=== PATIENT | female | born 1975 | race Caucasian/White ===

== ENCOUNTER 2025-02-02 13:54 | Emergency (ER) | payer OTHER, SELFPAY ==
--- NOTE | 2025-02-02 14:05 | XR_ITS ---
PROCEDURE INFORMATION: Exam: XR Chest Exam date and time: 02/02/2025 2:25 PM Age: 49 years old Clinical indication: Shortness of breath; Additional info: Short of breath TECHNIQUE: Imaging protocol: Radiologic exam of the chest. Views: 1 view. COMPARISON: CT ABDOMEN PELVIS W CON 02/02/2025 2:22 PM FINDINGS: Lungs: Calcified left upper lobe granuloma. No consolidation. Pleural spaces: Unremarkable. No pleural effusion. No pneumothorax. Heart/Mediastinum: Unremarkable. No cardiomegaly. Bones/joints: Unremarkable. IMPRESSION: No acute findings.
--- NOTE | 2025-02-02 14:05 | CT_ITS ---
PROCEDURE INFORMATION: Exam: CT Abdomen And Pelvis With Contrast Exam date and time: 02/02/2025 2:22 PM Age: 49 years old Clinical indication: Abdominal pain; Additional info: Right flank pain TECHNIQUE: Imaging protocol: Computed tomography of the abdomen and pelvis with contrast. Radiation optimization: All CT scans at this facility use at least one of these dose optimization techniques: automated exposure control; mA and/or kV adjustment per patient size (includes targeted exams where dose is matched to clinical indication); or iterative reconstruction. Contrast material: ISOVUE; Contrast volume: 75 ml; Contrast route: IV; COMPARISON: No relevant prior studies available. FINDINGS: Liver: Normal. No mass. Gallbladder and biliary ducts: Normal. No calcified stones. No ductal dilation. Pancreas: Normal. No ductal dilation. Spleen: Normal. No splenomegaly. Adrenal glands: Normal. No mass. Kidneys and ureters: Normal. No hydronephrosis. Stomach and bowel: Sigmoid colon surgical anastomosis. There appears to be a near total colectomy. Appendix: No evidence of appendicitis. Intraperitoneal space: Unremarkable. No free air. No significant fluid collection. Vasculature: Atherosclerosis. Lymph nodes: Unremarkable. No enlarged lymph nodes. Urinary bladder: Unremarkable as visualized. Reproductive: 3.1 x 3.5 x 3.6 cm simple appearing left ovarian/adnexal cyst. Punctate right ovarian calcification. Uterus unremarkable. Bones/joints: Unremarkable. No acute fracture. Soft tissues: Partially imaged breast implants. IMPRESSION: 1. 3.1 x 3.5 x 3.6 cm simple appearing left ovarian/adnexal cyst. 2. Atherosclerosis. 3. Sigmoid colon surgical anastomosis. There appears to be a near total colectomy. 4. Additional chronic/nonemergent findings as detailed above.
[2025-02-02 14:07] VITALS: BP 170/95; PULSE 89; RESP 16; TEMP 37.1; O2SAT 99; BMI 28.0
--- NOTE | 2025-02-02 14:11 | HMH.EDGENADL ---
Discharge Plan Disposition Patient Disposition: Left Against Medical Advice Referrals Follow up/Referrals: Provider,Referral, MD [Primary Care Provider, Medical] - See instructions Clinical Impressions Clinical Impression: Abdominal pain, Vomiting, Left against medical advice Instructions Patient Instructions: DI for Acute Abdominal Pain Print Language Print Language: Jamaican Discharge ED Provider: Ravinder Becerril General Adult HPI <Emani Stewart (ED), SALES CONTRACTOR - Last Filed: 02/02/25 15:26> General Chief complaint: Abdominal Pain Stated complaint: Abd. Pain and vomiting Time Seen by Provider: 02/02/25 13:57 Mode of Arrival: Ambulatory Source of Information: Patient Description of Symptoms (Recalled from ER Triage Doc. by RN): Patient complaining of left lower abdominal pain that started yesterday. Also nausea and vomiting History of Present Illness HPI narrative: 49-year-old female presents to the ED today for left lower abdominal pain that started yesterday. She has been vomiting and her meds at home have not stopped it. She has history of a total colectomy in 2022. She has also PCOS. She says it is difficult to tell which is hurting her. She has had an ileus in the past, SBO and kidney stones. She says she has no dysuria. No fevers. He says the vomiting has gotten worse since last night. Related Data Allergies Allergy/AdvReac Type Severity Reaction Status Date / Time amoxicillin Allergy Rash Verified 02/02/25 14:12 latex Allergy Rash Verified 02/02/25 14:12 morphine Allergy Hives Verified 02/02/25 14:12 PFSH <Emani Stewart (ED), SALES CONTRACTOR - Last Filed: 02/02/25 15:26> [facility] Disclaimer: The information contained in this section may have been updated after the patient was seen, as this information can be updated by other users. Social History (Updated 02/02/25 @ 15:25 by Emani Stewart (ED), SALES CONTRACTOR) Smoking Status: Former smoker alcohol intake: never current occupational status: other Travel in the last 8 weeks?: None Have you lived/traveled outside US in past 30 days?: No Contact w/someone who lives/traveled outside US past 30 days?: No Exposure to someone with infectious disease in past 14 days?: No Do you have a fever (greater than 100.4 F or 38 C)?: No Have you tested positive for COVID-19?: No Exposed to someone with COVID-19 in past 14 days?: No Do you have a sore throat?: No Do you have a cough?: No Do you have any weakness?: No Do you have any diarrhea?: No Are you experiencing any unusual bleeding?: No Do you have any muscle aches/pain?: No Do you have any abdominal pain?: Yes Are you experiencing loss of taste or smell?: No <Emani Stewart (ED), SALES CONTRACTOR - Last Filed: 02/02/25 15:26> ROS Obtained: Yes Systems reviewed as appropriate & no additional complaints except as documented Constitutional Constitutional: Reports as per HPI Physical Exam <Emani Stewart (ED), SALES CONTRACTOR - Last Filed: 02/02/25 15:26> General General appearance: alert Head Head exam: atraumatic and normocephalic Eye Eye exam: Present PERRL and EOMI ENT ENT exam: Present normal oropharynx and mucous membranes moist Neck Neck exam: Present full ROM and trachea midline Respiratory Respiratory exam: Present normal lung sounds bilaterally Cardiovascular Cardiovascular exam: Present regular rate, normal rhythm, normal heart sounds, +S1 and +S2 Abdominal Exam Abdominal exam: Present soft and normal bowel sounds Abdominal tenderness: Present LLQ Extremities Exam Extremities exam: Present full ROM and normal capillary refill Neurological Exam Neurological exam: Present alert and oriented X3 Skin Skin exam: Present warm and dry Medical Decision Making <Emani Stewart (ED), SALES CONTRACTOR - Last Filed: 02/02/25 15:26> Medical Records Screening: Per USPSTF and CDC recommendations, given the prevalence of disease in our region, it is our hospital?s policy to screen for HIV and viral Hepatitis for all patients aged 18 and over and those with ongoing risk factors. Jean Claude Inquiry Pt receiving controlled substance: No Jean Claude was queried for this patient: No Vital Signs: 02/02/25 14:07 02/02/25 15:26 Temperature 98.8 F 98.6 F Temperature Source Oral Oral Pulse Rate 87 Pulse Rate [Right Brachial] 89 Respiratory Rate 16 16 Blood Pressure 136/78 Blood Pressure [Right Arm] 170/95 H Blood Pressure Mean [Right Arm] 120 Blood Pressure Source Automatic Cuff Blood Pressure Source [Right Arm] Automatic Cuff Blood Pressure Position Sitting Blood Pressure Position [Right Arm] Sitting 02 Sat by Pulse Oximetry 99 Oxygen Delivery Method Room Air Room Air Lab Data Lab Results 02/02/25 15:07: WBC 11.6 H, RBC 4.64, Hgb 13.7, Hct 40.8, MCV 87.9, MCH 29.5, MCHC 33.6, RDW 13.1, Plt Count 353, MPV 9.4, Neut % (Auto) 76.7, Lymph % (Auto) 16.4, Brooke % (Auto) 5.0, Eos % (Auto) 0.5, Baso % (Auto) 0.5, Neut # (Auto) 8.9 H, Lymph # (Auto) 1.9, Brooke # (Auto) 0.6, Eos # (Auto) 0.1, Baso # (Auto) 0.1, Sodium 133 L, Potassium 4.1, Chloride 102, Carbon Dioxide 26, Anion Gap 9.1, BUN 18 H, Creatinine 0.60, Estimated Creat Clear 143, Estimated GFR 107, Est GFR ( Amer) 129, Glucose 98, Calcium 9.2, Magnesium 2.1, Total Bilirubin 0.2, AST 22, ALT 27, Alkaline Phosphatase 74, Troponin I < 0.01, Total Protein 7.0, Albumin 4.1, Globulin 2.9, Albumin/Globulin Ratio 1.4, Lipase 64 02/02/25 15:07 02/02/25 15:07 Orders (Tests/Meds): ED MEDICATIONS Discontinued Medications Generic Name Dose Route Start Last Admin Trade Name Freq PRN Reason Stop Dose Admin Dicyclomine HCl 20 mg 02/02/25 14:04 Dicyclomine 10mg Capsule PO 02/02/25 14:05 ONCE ONE Sodium Chloride 1,000 mls @ 999 mls/hr 02/02/25 14:04 02/02/25 14:48 Sod Chlor 0.9% 1000ml Bag IV 02/02/25 15:04 999 mls/hr .Q1H1M ONE Administration Iopamidol 75 ml 02/02/25 14:29 02/02/25 14:29 Iopamidol-370 (76%);100ml Bottle IV 02/02/25 14:30 75 ml ONCE ONE Administration Ketorolac Tromethamine 30 mg 02/02/25 14:04 02/02/25 14:50 Ketorolac 30mg/Ml Vial IV 02/02/25 14:05 30 mg ONCE ONE Administration Prochlorperazine Edisylate 5 mg 02/02/25 14:04 02/02/25 14:49 Prochlorperazine 10mg/2ml Vial IV 02/02/25 14:05 5 mg ONCE ONE Administration Sodium Chloride 10 ml 02/02/25 14:29 02/02/25 14:30 Sodium Chloride 0.9% 10ml Syr (Rad Only) IV 03/04/25 14:28 10 ml NEEDED PRN Administration Maintain IV Site ORDERS Category Date Time Status CT abdomen pelvis w con Stat Cat Scan 02/02/25 14:05 Completed Chest XR -- portable [XR chest portable] Stat Exams 02/02/25 14:05 Completed CBC [Complete Blood Count Auto Diff] Stat Lab 02/02/25 15:07 Completed Comprehensive Metabolic Panel Stat Lab 02/02/25 15:07 Completed Lipase Stat Lab 02/02/25 15:07 Completed Magnesium Stat Lab 02/02/25 15:07 Completed Rapid PCR Covid and Flu A/B Stat Lab 02/02/25 15:07 Received Trop I [Troponin I] Stat Lab 02/02/25 15:07 Completed Medical Decision Narrative: patient is a 49-year-old female presenting to the emergency department for evaluation of left lower quadrant abdominal pain and vomiting. Patient is hemodynamically stable and nontoxic-appearing upon arrival, afebrile. Differential diagnosis includes small bowel obstruction, ileus, viral illness, among others. Workup will be conducted with hematologic labs, specific imaging. Initial inventions include crystalloid bolus, analgesics. Initial labs have not returned at this time. CT scan and chest x-ray have been completed and initially Dr. Fournier looked at scan and as did I do not see anything dangerous as patient wants to leave AMA because someone around her had the flu here in the ED. I explained to her that I cannot control that people in the emergency department have seen flu. She says that she cannot get the flu and wants to be discharged. I told her that without having results I cannot discharge her but she can sign out AMA. Patient wants to leave without results. I discussed this with her and she still wants to leave despite the risks. Patient's vomiting has stopped and she states that she does feel improved. <Ravinder Becerril MD - Last Filed: 02/02/25 15:47> Vital Signs: 02/02/25 14:07 02/02/25 15:26 Temperature 98.8 F 98.6 F Temperature Source Oral Oral Pulse Rate 87 Pulse Rate [Right Brachial] 89 Respiratory Rate 16 16 Blood Pressure 136/78 Blood Pressure [Right Arm] 170/95 H Blood Pressure Mean [Right Arm] 120 Blood Pressure Source Automatic Cuff Blood Pressure Source [Right Arm] Automatic Cuff Blood Pressure Position Sitting Blood Pressure Position [Right Arm] Sitting 02 Sat by Pulse Oximetry 99 Oxygen Delivery Method Room Air Room Air Lab Data Lab Results 02/02/25 15:07: WBC 11.6 H, RBC 4.64, Hgb 13.7, Hct 40.8, MCV 87.9, MCH 29.5, MCHC 33.6, RDW 13.1, Plt Count 353, MPV 9.4, Neut % (Auto) 76.7, Lymph % (Auto) 16.4, Brooke % (Auto) 5.0, Eos % (Auto) 0.5, Baso % (Auto) 0.5, Neut # (Auto) 8.9 H, Lymph # (Auto) 1.9, Brooke # (Auto) 0.6, Eos # (Auto) 0.1, Baso # (Auto) 0.1, Sodium 133 L, Potassium 4.1, Chloride 102, Carbon Dioxide 26, Anion Gap 9.1, BUN 18 H, Creatinine 0.60, Estimated Creat Clear 143, Estimated GFR 107, Est GFR ( Amer) 129, Glucose 98, Calcium 9.2, Magnesium 2.1, Total Bilirubin 0.2, AST 22, ALT 27, Alkaline Phosphatase 74, Troponin I < 0.01, Total Protein 7.0, Albumin 4.1, Globulin 2.9, Albumin/Globulin Ratio 1.4, Lipase 64 Orders (Tests/Meds): ED MEDICATIONS Discontinued Medications Generic Name Dose Route Start Last Admin Trade Name Freq PRN Reason Stop Dose Admin Dicyclomine HCl 20 mg 02/02/25 14:04 Dicyclomine 10mg Capsule PO 02/02/25 14:05 ONCE ONE Sodium Chloride 1,000 mls @ 999 mls/hr 02/02/25 14:04 02/02/25 14:48 Sod Chlor 0.9% 1000ml Bag IV 02/02/25 15:04 999 mls/hr .Q1H1M ONE Administration Iopamidol 75 ml 02/02/25 14:29 02/02/25 14:29 Iopamidol-370 (76%);100ml Bottle IV 02/02/25 14:30 75 ml ONCE ONE Administration Ketorolac Tromethamine 30 mg 02/02/25 14:04 02/02/25 14:50 Ketorolac 30mg/Ml Vial IV 02/02/25 14:05 30 mg ONCE ONE Administration Prochlorperazine Edisylate 5 mg 02/02/25 14:04 02/02/25 14:49 Prochlorperazine 10mg/2ml Vial IV 02/02/25 14:05 5 mg ONCE ONE Administration Sodium Chloride 10 ml 02/02/25 14:29 02/02/25 14:30 Sodium Chloride 0.9% 10ml Syr (Rad Only) IV 03/04/25 14:28 10 ml NEEDED PRN Administration Maintain IV Site ORDERS Category Date Time Status CT abdomen pelvis w con Stat Cat Scan 02/02/25 14:05 Completed Chest XR -- portable [XR chest portable] Stat Exams 02/02/25 14:05 Completed CBC [Complete Blood Count Auto Diff] Stat Lab 02/02/25 15:07 Completed Comprehensive Metabolic Panel Stat Lab 02/02/25 15:07 Completed Lipase Stat Lab 02/02/25 15:07 Completed Magnesium Stat Lab 02/02/25 15:07 Completed Rapid PCR Covid and Flu A/B Stat Lab 02/02/25 15:07 Received Trop I [Troponin I] Stat Lab 02/02/25 15:07 Completed ECG Data Tracing #1: Independently interpreted by me rate is 97, rhythm is regular, axis is normal, no ST elevation in anatomical contiguous leads, QTc 346 isolated PVC. Critical Care <Emani Stewart (ED), SALES CONTRACTOR - Last Filed: 02/02/25 15:26> Critical Care Time Critical Care Time: No
--- OUTSIDE RECORDS SUMMARY | 2025-02-02 14:15 | XMS_ITS | Continuity of Care Document ---
Author Organization [facility]. If a dditional information is needed, contact Health Information Management at [phone] [address] [place] [address] Phone Care Team Providers Care Senior Business Process Analyst Name Role Phone Unavailable Unavailable Unavailable Unavailable Unavailable Unavailable Unavailable Unavailable Unavailable Problems Abdominal pain Onset:24-Nov-2022 Venita FORD Allergies and Adverse Reactions morphine(Allergy) Onset: 24-Nov-2022 Reaction:ITCHING Amoxicillin(Allergy) Onset: 24-Nov-2022 Reaction:RASH metoclopramide(Allergy) Onset: 24-Nov-2022 Reaction:SPASTICITY Social History Smoking Status Never smoked tobacco Recorded: 24-Nov-2022
--- OUTSIDE RECORDS SUMMARY | 2025-02-02 14:16 | XMS_ITS | Clinical Summary ---
[facility] Address [address] [place] [address] Care Team Providers Care Floor Cleaner Name Role Phone Mora Prather MD Primary Care Provider [phone] Allergies Active Allergy Reactions Criticality Noted Date Comments Amoxicillin-Pot Clavulanate GI Intolerance 06/09 Medications azithromycin (ZITHROMAX Z-KAITLIN) 250 MG tablet Take 2 tablets the first day, then 1 tablet daily for 4 days. 6 tablet 07/06/2016 Active Immunizations Immunization Administration Dates Next Due PPD Test 10/18/2015 Social History Tobacco Use Types Packs/Day Years Used Date Smoking Tobacco: Never Assessed Abuse Screen Answer Date Recorded Unsafe at Home or Work/School Not on file Feels Threatened by Someone? Not on file 11/2022 Does Anyone Keep You from Co ntacting Others or Doint Things Outside the Home? Not on file 11/16/2022 Physical Sign of Abuse Present Not on file 1 Housing Stability Answer Date Recorded Current Living Arrangements Not on file 11/07 Potentially Unsafe Housing Conditions Not on dat e 11/16/2022 Family and Community Support Answer Jackson e Recorded Help with Day-to-Day Activities Not on file 11/16/2022 Lonely or Isolated Not on file 11/16/2022 Employment Answer Date Recorded Do you want help finding or keeping work or a michelle b? Not on file 11/16/2022 Disabilities Answer Date Recorded Concentrating, Remembering, or Making Decisions Difficulty Not on file 11/16/2022 Doing Errands Independently Difficulty Not on fi le 11/16/2022 Education Answer Date Recorded Help with school or training? Not on file Preferred Language Not on file 11/16/2022 Comments Unknown Sex and Gender Information Value Date Recorded Sex Assigned at Not on file Legal Sex Female 10:25 AM EDT Gender Identity Not on file Sexual Orientation Not on file Last Filed Vital Signs Vital Sign Reading Time Taken Comments Blood Pressure - - Pulse 80 07/06/2016 10:19 AM EDT Temperature 37.3 C (99.1 F) 07/06/2016 10:19 AM EDT Respiratory Rate 17 07/06/2016 10:19 AM EDT Oxygen Saturation 99% 07/06/2016 10:19 AM EDT Inhaled Oxygen Concentration - - Weight 79.8 kg (176 lb) 07/06/2016 10:19 AM EDT Height 167.6 cm (5' 6 ) 07/06/2016 10:19 AM EDT Body Mass Index 28.41 07/06/2016 10:19 AM EDT Plan of Treatment Health Maintenance Due Date Last Done Comments Annual Gynecologic Pelvic an d Breast Exam 1976 TDAP/TD VACCINES (1 - Tdap) 04/09/1995 MAMMOGRAM 2016 ANNUAL PHYSICAL 07/06/2016 HEPATITIS C SCREENING 07/06/2016 COLOGUARD 2021 COLON CANCER SCREENING 5 YEA R SIGMOIDOSCOPY 2021 COLONOSCOPY 2021 COL[address]ECTAL CANCER SCREENING 2021 CT COLONOGRAPHY 2021 FECAL OCCULT BLOOD TEST 2021 FIT Testing (1 year) 2021 INFLUENZA VACCINE 09/07/2024 Pneumococcal Vaccine 0-49 Aged Out No longer eligible based on patient's age to complete this topic Care Teams Floor Cleaner Relationship Specialty Start Date End Date Mora Prather MD [address] [place], [place] [id number] PCP - General Internal Medicine 10/18/15
--- OUTSIDE RECORDS SUMMARY | 2025-02-02 14:16 | XMS_ITS | Continuity of Care Document ---
Author Organization [place], [facility] [place] [address] Care Team Providers Care Adjustment Supervisor Name Role Phone DINORA ROQUE Primary Care Provider DINORA ROQUE Referring Provider EDVIN PERRY Primary Care Provider DINORA ROQUE Primary Care Provider Assessment No assessment recorded. Plan of Treatment Reminders Order Date Submit Date Provider Last Modified By Organization Details Last Modified Time Details Appointments None recorded. Lab None recorded. Referral None recorded. Procedures None recorded. Surgeries None recorded. Imaging None recorded. Medication Orders Kenalog 40 mg/mL suspension for injection 2024 025 [email or web address] Not available 5 09:46:45 Patient TargetsNo targets recorded. Patient InstructionsNo instructions recorded. Reason for Referral None Reported. Results Created Date Observation Date Name Description Value Unit Range Abnormal Flag Note LastModifiedBy Organization Detail LastModifiedTime 12/26/1912/24/2024 XR, shoul lucrecia TECHNI QUE: Left should er radiog raphs, 3 views. HISTOR Y: Should er pain. COMPAR VALERIA: None availa ble. FINDIN GS: BONES: Bone minera lizati on is normal . The osseou s struct ures are intact , withou t acute or healin g fractu re or destru ctive abnorm ality. JOINTS : Joint relati onship s are mainta ined. No signif icant degene rative change s. SOFT TISSUE S: No apprec iable soft tissue abnorm ality. OTHER: The visual ized left lung is clear. IMPRES EVELYNE: Unrema rkable left should er. Jeevan wilkinson MD 2024 3:35 PM (US/Luis Angel [email or web address]) Electr onical ly Signed By: Jeevan Triana Sign Date: [email or web address] [facility] All Locations, [place], [address], 12/27/2024 07:36:14 Result Notes None recorded. Problems Name Problem SNOMED Code Status Onset Date Resolution Date Notes Provider Name and Address Organization Details Recorded Time Polyneuropa thy associated with another disorder 037475761 [facility] 6 14:08:24 Hypoglycemi a 593327530 Active 2011 Roula Mark Anthony [facility] 6 14:08:24 Malaise and fatigue 630931518 Active 2011 Roula Hopson [facility] 6 14:08:24 Polycystic ovary syndrome 939446451 Active 2019 Dinora Roque DO [address], [place], [address], [facility], [facility] 0 14:49:03 Abnormal weight 07081497 Active 2019 Dinora Roque DO [address], [place], [address], [facility], [facility] 0 14:49:57 Slow transit constipatio n 63939697 Active 2021 Harmony Khanna [facility], [facility] 2 13:05:45 Calcified granuloma of lung 7860200938934 9100 Active 2022 Palmira LASSITER DIRECTOR NICU [address], [place], [address], [facility], [facility] 3 16:11:01 Chronic insomnia 635569221 Active 2022 Palmira LASSITER DIRECTOR NICU [address], [place], [address], [facility] Physician [facility], [facility] 3 16:11:22 Hyperlipide malgorzata 47545984 Active 2022 Palmira LASSITER DIRECTOR NICU [address], [place], [address], [facility] Physician [facility], [facility] 3 16:12:39 Polyp of vaginal wall 015967867 Active 2022 Palmira LASSITER DIRECTOR NICU [address], [place], [address], [facility] Physician [facility], [facility] 3 16:29:08 Flushing of face due to rosacea 866724455 Active 2023 Palmira LASSITER DIRECTOR NICU [address], [place], [address], [facility] Physician [facility], [facility] 4 13:09:11 Acute sinusitis 74411833 Active 2023 Palmira LASSITER DIRECTOR NICU [address], [place], [address], [facility] Physician [facility], [facility] 4 13:10:26 Rosacea 016859812 Active 2023 Palmira LASSITER DIRECTOR NICU [address], [place], [address], [facility] Physician [facility], [facility] 4 13:12:08 Chronic diarrhea 470001068 Active 2023 Cheryl Galeas DIRECTOR NICU [address], [place], [address], [facility] Physician [facility], [facility] 4 22:47:51 Ovarian pain 583705236 Active 2023 Cheryl Galeas DIRECTOR NICU [address], [place], [address], [facility], [facility] 4 22:47:52 Family history of malignant neoplasm of ovary 561438502 Active 2023 Cheryl Galeas APRN [address], [place], [address], [facility], [facility] 4 22:47:55 Vitamin D deficiency 96577826 Active 2023 Cheryl Galeas APRN [address], [place], [address], [facility], [facility] 4 22:49:01 Insomnia 524402589 Active 2023 Cheryl Galeas APRN [address], [place], [address], [facility], [facility] 4 22:49:17 Post-surgic al malabsorpti on 019966352 Active 2023 LOGAN DEL ANGEL [address], [place], [address], [facility], [facility] 4 12:28:26 Problem Notes None recorded. Procedures Surgical History Date Name Laterality Status Provider Name and Address Organization Details Recorded Time 01/01/20 25 Aspiration Major Joint/Bursa completed LOGAN DEL ANGEL [address], [place], [address], [facility], [facility] 12/31/2024 11:31:29 04/28/19 25 mammography completed Nissa [facility] 12/21/2024 08:21:35 08/18/19 23 excision of colon completed Cheryl Galeas APRN [address], [place], [address], [facility], [facility] 09/05/2023 15:46:16 04/01/19 22 Skin: Destruction of Benign/Premalig nant lesions completed Dinora Roque DO [address], [place], [address], [facility], [facility] 04/01/2021 13:39:00 12/03/19 21 EGD-Upper Endoscopy completed Harmony Khanna [facility], [facility] 12/02/2020 20:27:18 11/19/19 21 Colonoscopy completed Harmony Khanna [facility], [facility] 11/18/2020 12:49:35 02/25/19 21 Quality Medication Reviewed and Updated completed [facility] Physician [facility], [facility] 02/26/2020 10:39:25 02/25/19 21 Quality (DM or HTN) BP Diastolic < 80 [facility], [facility] 02/26/2020 10:39:30 02/25/19 21 Quality Tobacco Non- User completed [facility], [facility] 02/26/2020 10:39:23 02/25/19 21 Quality (DM or HTN ) BP Systolic < 130 [facility], [facility] 02/26/2020 10:39:28 02/25/19 21 Quality BMI with follow up completed [facility], [facility] 02/26/2020 10:39:26 02/17/19 21 Mammogram Screening completed Bobbi Lynne [facility], [facility] 02/19/2020 19:02:51 10/29/19 20 Quality Medication Reviewed and Updated completed [facility], [facility] 10/29/2019 14:04:55 10/29/19 20 Quality (DM or HTN) BP Diastolic < 80 completed [facility] Physician [facility], [facility] 10/29/2019 14:05:01 10/29/19 20 Quality Tobacco Non- User completed [facility] Physician [facility], [facility] 10/29/2019 14:04:58 10/29/19 20 Quality (DM or HTN ) BP Systolic < 130 completed [facility] Physician [facility], [facility] 10/29/2019 14:04:59 10/29/19 20 Quality BMI with follow up completed [facility] 10/29/2019 14:04:56 09/10/19 20 Walk-In Pre Employment Physical completed Fransisco Mejía MD [address], [place], [address], [facility], [facility] 09/10/2019 16:40:00 06/08/19 19 Date [facility] 10/29/2019 15:01:23 02/07/19 16 Colonoscopy completed [facility] 10/29/2019 14:21:40 06/04/19 14 Walk-In Pre Employment Physical completed Fransisco Mejía MD [address], [place], [address], [facility] 06/03/2013 11:09:55 02/07/19 09 Tubal ligation completed Roula Hopson [facility] 02/13/2015 14:11:02 02/07/19 06 section completed Farhana Chavez [facility] 06/03/2013 10:07:16 02/07/18 77 Hernia repair completed Daily Juarez [facility] 06/03/2013 09:35:37 Imaging Results None recorded. Procedure Notes None recorded. Medical Equipment None Reported. Allergies Allergen ID Allergen Name Allergen Category Reaction Reaction Severity Criticality Documentation Date Start Date Code Code System Note Provider Name and Address Organization Details Recorded Time [id number] amoxicill in medicatio n rash Not available low 01/07/2023 723 RxNorm Carmelita Brooks [facility] 3 13:41:20 350357 Bactrim medicatio n other Not available Not available 06/03/2013 69600 9 RxNorm Meryl Grewal [facility] 0 15:01:22 7594020 morphine medicatio n rash Not available Not available 12/21/2024 7052 RxNorm Nissa Cleo [facility] 5 08:14:16 319362 latex environme nt,medica tion Not available Not available Not available 09/10/2019 03884 91 RxNorm Nissa Gallo [place], [place] - [facility] Physician [facility], [facility] 5 10:35:34 168233 black pepper preparati on food respirato ry distress Not available Not available 09/10/2019 66628 4 RxNorm Meryl Grewal [place], [place] - [facility], [facility] 0 15:01:22 Medications Name Sig Start Date Stop Date Status Note LastModified by Organization Details LastModified Time cyclobenzap rine 10 mg tablet Take 1 tablet 3 times a day by oral route as needed. 2024 active Not Available Not Available Not Avai lable amoxicillin 500 mg capsule Take 1 capsule 3 times a day by oral route for 10 days. 2014 active Not Available Not Available Not Avai lable doxycycline hyclate 100 mg capsule Take 1 capsule twice a day by oral route for 10 days. 04/01 completed Not Available Not Available Not Available erythromyci n 500 mg tablet 01/05 completed Not Available Not Available Not Available Ceftin 500 mg tablet Take 1 tablet every 12 hours by oral route for 14 days. 2014 active Not Available Not Available Not Avai lable loperamide 2 mg capsule Take 1 capsule 4 times a day by oral route as needed for 90 days, for diarrhea. 2024 active Not Available Not Available Not Avai lable Claritin 10 mg tablet Take 1 tablet every day by oral route. 04/01 completed Not Available Not Available Not Available naltrexone 50 mg tablet Take 1 tablet every day by oral route. 2024 active Not Available Not Available Not Avai lable Medrol (Jono) 4 mg tablets in a dose pack Take as directed 01/05 completed Not Available Not Available Not Available Tubersol 5 tub. unit/0.1 mL intradermal injection solution Inject 0.1 mL by intraderm al route. 04/01 completed Not Available Not Available Not Available Zithromax Z-Jono 250 mg tablet TAKE 2 TABLETS (500 MG) BY ORAL ROUTE ONCE DAILY FOR 1 DAY THEN 1 TABLET (250 MG) BY ORAL ROUTE ONCE DAILY FOR 4 DAYS 2015 active Not Available Not Available Not Avai lable Diflucan 150 mg tablet Take 1 tablet every day by oral route for 1 day. 2024 active Not Available Not Available Not Avai lable metronidazo le 500 mg tablet 11/27 completed Not Available Not Available Not Available hydroxyzine HCl 50 mg tablet Take 1 tablet 4 times a day by oral route. 2024 active Not Available Not Available Not Avai lable phentermine 37.5 mg tablet Take 1 tablet every day by oral route. 04/01 completed Not Available Not Available Not Available prochlorper azine maleate 10 mg tablet Take 1 tablet 3 times a day by oral route. 2024 active Not Available Not Available Not Avai lable Cholestyram ine Light 4 gram powder for suspension in a packet Take 1 packet 3 times a day by oral route as needed for 90 days. 2024 active Not Available Not Available Not Avai lable ondansetron 8 mg disintegrat ing tablet Place 1 tablet twice a day by transling ual route as needed. 2024 active Not Available Not Available Not Avai lable Depo-Medrol 80 mg/mL suspension for injection Take 80 mg by injection route. 01/05 completed Not Available Not Available Not Available Kenalog 40 mg/mL suspension for injection Take 2 mL by injection route. 2024 active Not Available Not Available Not Avai lable Macrobid 100 mg capsule Take 1 capsule every 12 hours by oral route for 10 days. 09/09 completed Not Available Not Available Not Available tamsulosin 0.4 mg capsule Take 1 capsule every day by oral route for 30 days. 06/09 completed Not Available Not Available Not Available cyanocobala min (vit B-12) 1,000 mcg/mL injection solution Inject 1 mL every month by subcutane ous route. 06/09 completed Not Available Not Available Not Available trazodone 150 mg tablet Take 1 tablet every day by oral route at bedtime. 2024 active Not Available Not Available Not Avai lable Cipro 500 mg tablet Take 1 tablet every 12 hours by oral route for 7 days. 08/29 completed Not Available Not Available Not Available triamcinolo ne acetonide 55 mcg nasal spray aerosol [place] 2 spray(s) EVERY DAY by intranasa l route. 2014 active Not Available Not Available Not Avai lable promethazin e 25 mg tablet 1 tablet as needed up to 4x/day if zofran not effective 09/07 completed Not Available Not Available Not Available bupropion HCl 75 mg tablet Take 1 tablet 3 times a day by oral route. 2024 active Not Available Not Available Not Avai lable levofloxaci n 500 mg tablet Take 1 tablet every 24 hours by oral route. 09/07 completed Not Available Not Available Not Available ketorolac 60 mg/2 mL intramuscul ar solution Inject 60 mg by intramusc ular route. 01/05 completed Not Available Not Available Not Available fluticasone propionate 50 mcg/actuati on nasal spray,suspe nsion [place] 1 spray every day by intranasa l route. 06/09 completed Not Available Not Available Not Available metronidazo le 0.75 % topical gel APPLY A THIN LAYER TO THE AFFECTED AREA(S) BY TOPICAL ROUTE 2 TIMES PER DAY IN THE MORNING AND EVENING 2024 active Not Available Not Available Not Avai lable phentermine 37.5 mg capsule Take 1 capsule every day by oral route. 02/25 completed Not Available Not Available Not Available oxycodone 5 mg tablet 11/27 completed Not Available Not Available Not Available clindamycin 1 % lotion APPLY TO AFFECTED AREAS OF THE BODY 1-2 TIMES DAILY NEEDED. 06/09 completed Not Available Not Available Not Available cyclobenzap rine 5 mg tablet Take 1 tablet 3 times a day by oral route as needed. 09/07 completed Not Available Not Available Not Available Imodium A-D 1 mg/7.5 mL oral liquid Take 30 mL every day by oral route for 30 days. 2024 active Not Available Not Available Not Avai lable lactulose 40 gm BID 06/09 completed Not Available Not Available Not Available Zantac 75mg 09/09 completed Not Available Not Available Not Available PNV 3-iron fum,gluc-fo lic acid active Not Available Not Available Not Available levocetiriz ine 5 mg tablet TAKE 1 TABLET BY MOUTH EVERY DAY 2024 active Not Available Not Available Not Avai lable Probiotic 2019 active Not Available Not Available Not Avai lable lactulose 10 gram/15 mL (15 mL) oral solution Take 10 mL twice a day by oral route. 11/27 completed Not Available Not Available Not Available Linzess 145 mcg capsule TAKE 1-2 TABLET BY MOUTH QAM 04/01 completed Not Available Not Available Not Available cyanocobala min (vit B-12) 1,000 mcg/mL injection kit Inject 1 mL every week by subcutane ous route. 02/25 completed Not Available Not Available Not Available simethicone 250 mg capsule Take 2 capsules every day by oral route as needed for 30 days. 2024 active Not Available Not Available Not Avai lable Linzess 72 mcg capsule Take 1 capsule every day by oral route. 11/28 completed Not Available Not Available Not Available Motegrity 2 mg tablet Take 1 tablet every day by oral route in the morning. 06/09 completed Not Available Not Available Not Available Vitals Date Recorded Body height Respiratory rate Body temperature Heart rate Oxygen saturation Pain severity - 0-10 verbal numeric rating [Score] - Reported Body mass index (BMI) Body weight Systolic And Diastolic Provider Name and Address Organization Details Last Updated DateTime 5 167.64 cm 16 /min 98 [degF] 80 /min 99 % 0 28.5 kg/m2 28779.4 1 g 110/80 mm[Hg] Nissa Gallo [facility] 5 10:38:29 Social History Question Answer Notes LastModified by Organizat ion Details LastModified Time Tobacco Smoking Status Current Every Day [facility] 04/01/2021 12:48:39 Do You Have An Advance Directive? No [email or web address] Information n ot available 10/29/2019 Do You Wear A Helmet When Biking? Yes [email or web address] Information not available 06/09/2022 Is Blood Transfusion Acceptable In An Emergency? Yes Information not available 04/01/2021 What Is Your Level Of Caffeine Consumption? Moderate Information not available 10/29/2019 How Much Tobacco Do You Chew? None [email or web address] Information not available 10/29/2019 In The 14 Days Before Symptom Onset, Have You Had Close Contact With A Laboratory-confirm ed COVID-19 While That Case Was Ill? No [email or web address] Information n ot available 06/09/2022 In The 14 Days Before Symptom Onset, Have You Had Close Contact With A Person Who Is Under Investigation For COVID-19 While That Person Was Ill? No [email or web address] Information not available 06/09/2022 Have You Been To An Area Known To Be High Risk For COVID-19? No [email or web address] Information not available 06/09/2022 Which Illicit Or Recreational Drugs Have You Used? Denies [email or web address] Information not available 10/29/2019 Education 2 Year College [email or web address] Information not available 06/09/2022 Have There Been Any Changes To Your Family Or Social Situation? No [email or web address] Information no t available 06/09/2022 Are There Any Guns Present In Your Home? No [email or web address] Information not available 06/09/2022 Alcohol Use 1-2 Per Week [email or web address] Information not available 06/03/2013 Year Quit Tobacco Use 2019 [email or web address] Information not available 10/29/2019 Marital Status [email or web address] Informatio n not available 06/09/2022 Do You Have A Medical Power Of Account Associate? No [email or web address] Information not available 06/09/2022 What Was The Date Of Your Most Recent Tobacco Screening? 12/31/2024 Information not available 12/31/2024 What Is Your Relationship Status? Information not available 04/01/2021 Do You Use Your Seat Belt Or Car Seat Routinely? Yes [email or web address] Information not available 06/09/2022 Are You Sexually Active? Yes [email or web address] Information not available 10/29/2019 Do You Have Smoke And Carbon Monoxide Detectors In Your Home? Yes [email or web address] Information not available 06/09/2022 At What Age Did You Start Smoking Tobacco? 24 [email or web address] Information not available 10/29/2019 Are You Passively Exposed To Smoke? No [email or web address] Information no t available 06/09/2022 How Much Tobacco Do You Smoke? 1 PPW Information not available 04/01/2021 Do You Use Sunscreen Routinely? Yes [email or web address] Information not available 06/09/2022 Has Tobacco Cessation Counseling Been Provided? Yes [email or web address] Information not available 06/09/2022 On What Date Was Tobacco Cessation Counseling Provided? 12/31/2024 Information not available 12/31/2024 How Many Years Have You Smoked Tobacco? 20 Information not available 10/29/2019 Sex: Female Functional Status Question Answer Note LastModified by Organizat ion Details LastModified Time Do you use any illicit or recreational drugs? No [email or web address] Information not available 06/09/2022 Do you or have you ever used any other forms of tobacco or nicotine? No [email or web address] Information not available 06/09/2022 What is your level of alcohol consumption? None Information not available 10/29/2019 Do you or have you ever used smokeless tobacco? Never used smokeless tobacco Information not available 10/29/2019 Are you currently employed? 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 Never used electronic cigarettes [email or web address] Information not available 10/29/2019 What is your exercise level? Moderate Information not available 09/10/2019 Mental Status None recorded. Family History Relationship Description Onset Age of this Age Resolved Age Notes LastModified by Organization Details LastModified Time Mother Alive [email or web address] Not available 08:11:27 Mother Polyp of colon [email or web address] Not available 2024 08:11:27 Mother Hypertensive disorder [email or web address] Not available 2019 16:10:32 Mother Hypercholest erolemia [email or web address] Not available 2024 08:11:27 Mother Asthma [email or web address] Not available 16:11:25 Mother Ankylodactyl y [email or web address] Not available 2024 08:11:27 Father Alive [email or web address] Not available 08:11:27 Father Diabetes mellitus [email or web address] Not available 2019 16:09:42 Father Myocardial infarction [email or web address] Not available 09/09 16:09:56 Father Heart disease [email or web address] Not available 2019 16:10:12 Father Hypertensive disorder [email or web address] Not available 2019 16:10:32 Father Hypercholest erolemia [email or web address] Not available 2024 08:11:27 Father Malignant neoplasm of skin [email or web address] Not available 10/28 13:51:40 Medical History Condition Response Cancer (location) N Other Y Gout N Thyroid Disease N Kidney Stones N Measles/Mumps N Emphysema/COPD N Sexually Transmitted Disease N Depression N Prostate Problems N Vascular Disease N Rash/Skin Condition N Amputation (location) N Parkinson's N Paralysis N Headaches/Migraines N Cardiac Pacemaker/defibrillator N Nerve Damage / Neuropathy N Arthritis N Sleep disorder/Insomnia N Heart disease / Heart Attack N Crohn's Disease N HIV/AIDS N Stroke/TIA N Colon Problems N High Cholesterol N Serious Injuries N Kidney Disease N Memory Loss/Alzheimer's N Gallbladder disease N High blood pressure N Congestive heart failure N Falls N Alcohol Overuse N Blood Thinner Treatment N Hormone Replacement N Nervous Breakdown N Lane's Esophagus N Anemia N Urinary Problems N Colon Polyps N Gastritis N Hospitalizations (other than operations) N Back pain N Diabetes N Rheumatic Fever N Bleeding Disorder N Cardiac Arrhythmias /irregular heart rat e N Osteopenia/Osteoporosis N Anxiety/Stress N Asthma N Vision Problems N Erectile / Sexual Dysfunction N Ostomies (location) N Seizures N Jaundice N Hepatitis N Cirrhosis N GERD/Ulcer Y Chicken Pox N Allergies (other than meds) N Gynecological History Statement/Question Response Menses Monthly N STIs/STDs N Abnormal Pap N Date of Last Mammogram 06/07/2018 Obstetrics History GPAL:G 2 P 2 0 0 2 Type Value Full Term 2 Living 2 Total 2 Immunizations Vaccine Type Date Status Note Provider Nam e and Address Organization Details Recorded Time Influenza, high-dose, trivalent, PF 3 completed Chloe Wolf [facility] [place] - [facility], [facility] 07/28/2022 15:26:27 Influenza, high-dose, trivalent, PF 3 completed Meryl goldstein [place] - [facility] 10/29/2019 14:03:31 Influenza, split virus, quadrivalent, preservative 0 completed Chloepage Wolf [facility] 07/28/2022 15:26:26 Influenza, MDCK, quadrivalent, PF 0 completed Shahnaz Mayery [facility] 10/29/2019 15:13:19 Past Encounters Encounter ID Performer Location Encounter Start Date Encounter Closed Date Diagnosis/Indication Diagnosis SNOMED-CT Code Diagnosis ICD10 Code Diagnosis IMO Codes Diagnosis Note [id number] Dinora Roque DO [facility] [address] [place] [address] 12/21/2024 08:11:26 12/21/2024 19:17:18 Moderate major depression 235764 F32.1 chronic and improved Chronic diarrhea 5139737 09 K52.9 Chronic/pe rsistent secondary to her malabsorpt ion Spasm of back muscles 20 5825993 M62.830 Chronic/in termittent and controlled with cyclobenza esa in the past Candidiasis of vagina 72 592695 B37.31 acute but recurrent Chronic insomnia 4993459 04 F51.04 chronic/St able with no changes Allergy to food 34199158 1 Z91.018 Chronic/st able with refills given Rosacea 621340778 L71.9 Nausea 663964886 R11.0 Chronic/wo rsening Insomnia 603676724 G47.0 0 Chronic/st able and doing well with trazodone, refill given. Follow-up in the next couple of months as planned Body mass index 25-29 - overweight 931498330 E66.3 880013 Chronic with the addition of naltrexone to the bupropion Chronic pa in of left upper limb 0654597867 0712934 M25.512 G89.29 816214 Chronic and worsening with x-rays ordered and follow-up in 1 to 2 weeks [id number] Dinora Roque DO [facility] [address] [place] [address] 12/31/2024 10:23:54 01/01/2025 07:00:08 Impingement syndrome of left shoulder region 7376799805 55091 M75.42 7987074 Chronic/pe rsistent with some evidence of adhesive capsulitis associated with the impingemen t syndrome. A subacromia l injection was performed initially and we may need to do an intra-amanda cular injection if the subacromia l injection does not resolve symptoms. Adhesive c apsulitis of left shoulder 2974018858 58649 M75.02 3938655 Chronic and secondary to impingemen t syndrome. Intra-amanda cular injection may be necessary if the subacromia l injection does not resolve symptoms. Polycystic ovary syndrome 390394510 E28.2 Chronic/st able with no changes Chronic insomnia 8147081 04 F51.04 chronic/St able with no changes Health Concerns Section Related Observation LastModified by Organization Detai ls LastModified Time None Recorded Concern Status LastModified by Organization Details LastModified Time None Recorded Payers Encounter Date Sequence Insurance Name Policy Number Policy Chawla Covered Member ID Chawla Member ID Guarantor Name 12/31/2024 1 [facility] [id number] Hannah Arrieta [id number] Hannah Arrieta 12/31/2024 2 [employer] [id number] Hannah Arrieta [id number] Hannah Arrieta Notes Date Note Type Note Provider Name and Address Organization Details Recorded Time 12/31/2024 text/html This 49-year-old female presents in follow-up of her left shoulder issues. She had x-rays etc. and x-rays did not show significant abnormality and this appears to be an impingement syndrome. She continues to have symptoms and would like an injection. Some of her symptoms appear to be adhesive capsulitis secondary to this ongoing tendinitis and we may need to do an intra-articular injection if the subacromial injection does not improve symptoms. LOGAN DEL ANGEL [address], [place], [address], [facility] - [facility], [facility] 01/01/2025 06:59:55 OBGyn Episode No OBEpisode recorded.
--- OUTSIDE RECORDS SUMMARY | 2025-02-02 14:17 | XMS_ITS | Data Portability ---
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 Plan of Treatment Reminders Order Date Submit Date Provider Last Modified By Organization Details Last Modified Time Details Appointments None recorded. Lab urinalysis, complete 2024 025 willie [facility], [address] [facility] [address] [place], [address], 5 07:54:31 vitamin B1 (thiamine), blood 2023 024 [facility], [address] [place], [address], 4 09:33:46 iron + TIBC + ferritin, serum 2023 024 [facility], [address] [place], [address], 4 09:33:56 vitamin B12 + folate, serum or blood 2023 024 [facility], [address], [place], [address], 4 09:34:05 magnesium, serum or plasma 2023 024 [facility], [address], [place], [address], 4 09:34:32 vitamin D, 25-hydroxy, total, serum 2023 024 [facility], [address], [place], [address], 4 09:34:15 CMP, serum or plasma 2023 024 [facility], [address], [place], [address], 4 09:34:23 lipid panel, serum 2023 024 [facility], [address], [place], [address], 4 09:34:42 CBC 2023 024 [facility], [address], [place], [address], 4 09:34:57 Referral None recorded. Procedures None recorded. Surgeries None recorded. Imaging XR, shoulder 2024 025 [facility], [facility], All Locations, [place], [address], 5 15:46:08 Medication Orders Kenalog 40 mg/mL suspension for injection 2024 025 [email or web address] Not available 5 09:46:45 trazodone 150 mg tablet 2024 [facility] #93848, [address], [place], [place], [id number], 5 09:12:45 metronidazo le 0.75 % topical gel 2024 [facility] #09625, [address], [place], [place], [id number], 5 09:12:49 Cholestyram ine Light 4 gram powder for suspension in a packet 2024 [facility] #88254, [address], [place], [place], [id number], 5 09:12:44 Imodium A-D 1 mg/7.5 mL oral liquid 2024 [facility], [address], [place], [place], [id number], 5 09:12:46 loperamide 2 mg capsule 2024 [facility] #39522, [address], [place], [place], [id number], 5 09:12:43 simethicone 250 mg capsule 2024 [facility] #84341, [address], [place], [place], [id number], 5 09:12:44 prochlorper azine maleate 10 mg tablet 2024 [facility] #33729, [address], [place], [place], [id number], 5 09:12:44 ondansetron 8 mg disintegrat ing tablet 2024 [facility] #03153, [address], [place], [place], [id number], 5 09:12:49 cyclobenzap rine 10 mg tablet 2024 [facility] #78586, [address], [place], [place], [id number], 5 09:12:47 levocetiriz ine 5 mg tablet 2024 [facility] #78912, [address], [place], [place], [id number], 5 09:12:48 Diflucan 150 mg tablet 2024 [facility] #39012, [address], [place], [place], [id number], 5 09:12:46 hydroxyzine HCl 50 mg tablet 2024 [facility] #95958, [address], [place], [place], [id number], 5 09:12:46 naltrexone 50 mg tablet 2024 [facility] #50571, [address], [place], [place], [id number], 5 09:15:47 bupropion HCl 75 mg tablet 2024 [facility] #57419, [address], [place], [place], [id number], 5 09:13:49 Cipro 500 mg tablet 2024 025 [facility] #23482, [address], [place], [place], [id number], 5 05:05:14 trazodone 150 mg tablet 2024 025 [facility] #35789, [address], [place], [place], [id number], 5 14:21:09 loperamide 2 mg capsule 2024 025 [facility] #10542, [address], [place], [place], [id number], 5 14:21:08 ondansetron 8 mg disintegrat ing tablet 2024 025 [facility] #18735, [address], [place], [place], [id number], 5 14:21:08 cyclobenzap rine 10 mg tablet 2024 025 [facility] #42977, [address], [place], [place], [id number], 5 14:21:08 Diflucan 150 mg tablet 2024 025 [facility] #85389, [address], [place], [place], [id number], 5 14:21:07 bupropion HCl 75 mg tablet 2024 025 [facility] #94823, [address], [place], [place], [id number], 5 14:21:09 ondansetron 8 mg disintegrat ing tablet 2024 025 [facility] #36437, [address] [place], [place], [id number], 5 13:45:16 cyclobenzap rine 10 mg tablet 2024 025 [facility] #59629, [address] [place], [place], [id number], 5 13:45:50 trazodone 150 mg tablet 2024 025 [facility] #48141, [address] [place], [place], [id number], 5 13:45:18 hydroxyzine HCl 50 mg tablet 2024 025 [facility], [address] [place], [place], [id number], 5 13:45:18 Patient TargetsNo targets recorded. Patient Instructions Encounter Date Encounter Id Patient Instructions Last Modified By Organization Details Last Modified Time 09/08/2023 [id number] high cholesterol : care instructions [email or web address] Not available 09/08/2023 12:40:39 12/21/2024 [id number] learning about healthy weight [email or web address] Not available 12/21/2024 09:15:36 Reason for Referral None Reported. Results Created Date Observation Date Name Description Value Unit Range Abnormal Flag Note LastModifiedBy Organization Detail LastModifiedTime 09/05/19 24 09/08/2023 PAP + HPV HI Pap, liquid-based NILM nilm DIAGN OSIS: Negat madison for intra epith elial lesio n or malig amirah ADEQU ACY: Satis facto ry for evalu ation / Satis facto ry for evalu ation COMME NT: This Pap smear was scree matt with the jam tance of the BD Focal Point (TM) GS Imagi ng Syste m and scree matt by a cytot echno logis t. SPECI MEN SOURC E: PAP + HPV HI, VAGIN AL [facility] INFOR DORIAN N: LMP: N/A Provi ded Diagn osis Codes : Z12.4 Cervi covag inal cytol ogy sherly d be consi dered a scree daryn proce dure subje ct to false negat jessica and false posit jessica. Resul ts are more relia ble when a satis facto ry sampl e is obtai matt on a regul ar repet itive basis , and shoul d be inter prete d toget her with past and curre nt clini oliver data. ELECT MANAVREAL KING D BY: Antonieta matt By: Valerie Vasquez , FERNANDO (ASCP ) Case Elect manavreal harding 09/07 Not Available [facility] ([facility]) [address], [place], [address], 09/08/2023 15:45:21 09/05/19 24 09/08/2023 PAP + HPV HI HPV high risk DNA (non 16/18) NOT DETECT ED not detect ed Not Available [facility] ([facility]) [address], [place], [address], 09/08/2023 15:45:21 09/05/19 24 09/08/2023 PAP + HPV HI HPV high risk DNA type 18 NOT DETECT ED not detect ed Not Available [facility] ([facility]) [address], [place], [address], 09/08/2023 15:45:21 09/05/19 24 09/08/2023 PAP + HPV HI HPV high risk DNA type 16 NOT DETECT ED not detect ed HPV High Risk DNA (Non 16/18 ) (1,2, 3,4,5 ) HPV High Risk DNA Type 18 (1,2, 3,4,5 ) HPV High Risk DNA Type 16 (1,2, 3,4,5 ) (1) The tejas (R) HPV test is FDA-c leare d for ThinP rep(R ) speci mens and detec ts genom ic HPV DNA in the polym orphi c L1 regio n in 14 subty pes: Type 16, Type 18, and other high risk types (31,3 3,35, 39,45 ,51,5 2,56, 58,59 ,66,6 8). The test has been modif ied and valid ated for use in SureP ath(T M) speci mens. (2) HPV types 16 and/o r 18 that were Not Detec easton were undet ectab le or below the pre-s et thres hold. (3) The non-r epeat rate for HPV genot yping assay s varie s from 5 to 15%. In the NILM cytol ogy categ ory, there is a low posit madison predi ctive value (PPV = 15-20 %) for CIN2+ with a posit madison high risk HPV resul t. (4) This test was evalu ated and its perfo rmanc e ortega cteri stics deter mined by [place] [employer]. It has not been clear ed or appro desean by the U.S. Food and Drug Admin istra tion. The FDA has deter mined that such clear ance or appro calin is not neces shahriar. [place] [employer] is certi fied under the Clini oliver Labor atory Impro vemen t Amend ments of 1987 (CLIA ) as quali fied to perfo rm high compl exity clini oliver testi ng. This test is used for clini oliver purpo ses. It shoul d not be regar ded as inves tigat ional or for resea rch. (5) Resul ts shoul d be inter prete d toget her with past and curre nt clini oliver and labor atory data. Not Available [facility] ([facility]) [address], [place], [address], 09/08/2023 15:45:21 09/06/19 24 09/06/2023 A1C hemoglobin A1C 5.1 % 4.3 - 5.6 ADA Recom elda d guide lines for HgbA1 C%: 5.7-6 .4% Predi abeti c < 7.0% Reaso nable glyce anne marie goal for non-p regna nt adult s < 8.0% Appro priat e for patie nts with hypog lycem ia or advan allyn micro /macr o vascu lar compl icati ons Not Available [facility] [address] [facility] [address], [place], [address], 09/06/2023 12:21:53 09/06/19 24 09/06/2023 A1C estimated average glucose 100 mg/dL 97 - 140 Not Available [facility] [address] [place] [address] [address], [place], [address], 09/06/2023 12:21:53 09/06/19 24 09/06/2023 CBC W/ AUTOD IFF, COMPL ETE BLOOD COUNT WBC 5.7 K/uL 3.6 - 10.0 Not Available [facility] [address], [place], [address], 09/06/2023 12:38:48 09/06/19 24 09/06/2023 CBC W/ AUTOD IFF, COMPL ETE BLOOD COUNT RBC 4.4 M/uL 3.9 - 5.0 Not Available [facility] [address] [place] [address] [address] [place], [address], 09/06/2023 12:38:48 09/06/19 24 09/06/2023 CBC W/ AUTOD IFF, COMPL ETE BLOOD COUNT hemoglobin 13.0 g/dL 12.0 - 15.0 Not Available [facility] [address] [place], [place] [address]y [address], [place], [address], 09/06/2023 12:38:48 09/06/19 24 09/06/2023 CBC W/ AUTOD IFF, COMPL ETE BLOOD COUNT hematocrit 39.0 % 35.0 - 45.0 Not Available [facility] [address] [place] [address] [address], [place], [address], 09/06/2023 12:38:48 09/06/19 24 09/06/2023 CBC W/ AUTOD IFF, COMPL ETE BLOOD COUNT MCV 88.3 fL 80.0 - 99.0 Not Available [facility] [address] [place] [address] [address], [place], [address], 09/06/2023 12:38:48 09/06/19 24 09/06/2023 CBC W/ AUTOD IFF, COMPL ETE BLOOD COUNT MCH 29.4 pg 27.0 - 33.0 Not Available [facility] [address] [place] [address] [address], [place], [address], 09/06/2023 12:38:48 09/06/19 24 09/06/2023 CBC W/ AUTOD IFF, COMPL ETE BLOOD COUNT MCHC 33.3 g/dL 32.0 - 36.0 Not Available [facility] [address] [place] [address] [address], [place], [address], 09/06/2023 12:38:48 09/06/19 24 09/06/2023 CBC W/ AUTOD IFF, COMPL ETE BLOOD COUNT RDW 12.6 % 11.0 - 15.0 Not Available [facility] [address] [place] [address] [address], [place], [address], 09/06/2023 12:38:48 09/06/19 24 09/06/2023 CBC W/ AUTOD IFF, COMPL ETE BLOOD COUNT nucleated RBC 0 % 0 - 2 Not Available [facility] [address] [place] [address] [address], [place], [address], 09/06/2023 12:38:48 09/06/19 24 09/06/2023 CBC W/ AUTOD IFF, COMPL ETE BLOOD COUNT platelet 260 K/uL 140 - 440 Not Available [facility] [address], [place], [address], 09/06/2023 12:38:48 09/06/19 24 09/06/2023 CBC W/ AUTOD IFF, COMPL ETE BLOOD COUNT MPV 8.8 fL 7.4 - 10.4 Not Available [facility] [address] [place], [place] [address]y [address], [place], [address], 09/06/2023 12:38:48 09/06/19 24 09/06/2023 CBC W/ AUTOD IFF, COMPL ETE BLOOD COUNT neutrophil, percentage 65.9 % Not Available [facility] [address] [place], [place] [address]y [address], [place], [address], 09/06/2023 12:38:48 09/06/19 24 09/06/2023 CBC W/ AUTOD IFF, COMPL ETE BLOOD COUNT lymphocyte, percentage 26.3 % Not Available [facility] [address] [place], [place] [address], [place], [address], 09/06/2023 12:38:48 09/06/19 24 09/06/2023 CBC W/ AUTOD IFF, COMPL ETE BLOOD COUNT monocyte, percentage 6.2 % Not Available [facility] [address] [place], [place] [address], [place], [address], 09/06/2023 12:38:48 09/06/19 24 09/06/2023 CBC W/ AUTOD IFF, COMPL ETE BLOOD COUNT eosinophil, percentage 1.0 % Not Available [facility] [address] [place], [place] [address], [place], [address], 09/06/2023 12:38:48 09/06/19 24 09/06/2023 CBC W/ AUTOD IFF, COMPL ETE BLOOD COUNT basophil, percentage 0.6 % Not Available [facility] [address] [place], [place] [address], [place], [address], 09/06/2023 12:38:48 09/06/19 24 09/06/2023 CBC W/ AUTOD IFF, COMPL ETE BLOOD COUNT neutrophil, absolute 3.7 K/uL 1.5 - 7.5 Not Available [facility] [address] [place], [place] [address] [address], [place], [address], 09/06/2023 12:38:48 09/06/19 24 09/06/2023 CBC W/ AUTOD IFF, COMPL ETE BLOOD COUNT lymphocyte, absolute 1.5 K/uL 0.8 - 4.0 Not Available [facility] [address] [place], [place] [address] [address], [place], [address], 09/06/2023 12:38:48 09/06/19 24 09/06/2023 CBC W/ AUTOD IFF, COMPL ETE BLOOD COUNT monocyte, absolute 0.3 K/uL 0.1 - 1.0 Not Available [facility] [address] [place], [place] [address] [address], [place], [address], 09/06/2023 12:38:48 09/06/19 24 09/06/2023 CBC W/ AUTOD IFF, COMPL ETE BLOOD COUNT eosinophil, absolute 0.1 K/uL 0.1 - 1.0 Not Available [facility] [address] [place], [place] [address] [address], [place], [address], 09/06/2023 12:38:48 09/06/19 24 09/06/2023 CBC W/ AUTOD IFF, COMPL ETE BLOOD COUNT basophil, absolute 0.0 K/uL 0.0 - 0.2 Not Available [facility] [address] [place], [place] [address] [address], [place], [address], 09/06/2023 12:38:48 07/30/20 24 09/06/2023 MAGNE SIUM, SERUM magnesium 1.8 mg/dL 1.7 - 2.5 Not Available [facility] [address] [facility] [address], [place], [address], 09/06/2023 12:48:20 09/06/19 24 09/06/2023 LIPID PANEL W/ CALCU LATED LDL HDL cholestrol 52 mg/dL >50 Not Available [facility] [address] [facility] [address], [place], [address], 09/06/2023 12:48:26 09/06/19 24 09/06/2023 LIPID PANEL W/ CALCU LATED LDL cholesterol 167 mg/dL <200 Expec easton resul ts for Adult s: Total Nickie stero l: Risk class ifica tion < 200 mg/dL Heidi able 200-2 39 mg/dL Borde rline high >240 mg/dL High Not Available [facility] [address], [place], [address], 09/06/2023 12:48:26 09/06/19 24 09/06/2023 LIPID PANEL W/ CALCU LATED LDL triglyceride 59 mg/dL 30 - 150 Not Available [facility] [address] [facility] [address] [place], [address], 09/06/2023 12:48:26 09/06/19 24 09/06/2023 LIPID PANEL W/ CALCU LATED LDL non-HDL cholesterol 115 mg/dL <130 Heidi able < 130 mg/dL Not Available [facility] [address] [facility] [address] [facility] [address] [place], [address], 09/06/2023 12:48:26 09/06/19 24 09/06/2023 LIPID PANEL W/ CALCU LATED LDL chol/HDL risk ratio 3 calc < 5.0 Optim al Not Available [facility] [address], [place], [address], 09/06/2023 12:48:26 09/06/19 24 09/06/2023 LIPID PANEL W/ CALCU LATED LDL LDL calculated 103 mg/dL 0 - 99 high Not Available [facility] [address] [facility] [address], [place], [address], 09/06/2023 12:48:26 09/06/19 24 09/06/2023 CMP, COMPR EHENS MADISON METAB OLIC PANEL glucose 94 mg/dL 70 - 100 Not Available [facility] [address] [facility] [address], [place], [address], 09/06/2023 12:48:28 09/06/19 24 09/06/2023 CMP, COMPR EHENS MADISON METAB OLIC PANEL BUN 13 mg/dL 7 - 25 Not Available [facility] [address] [facility] [address], [place], [address], 09/06/2023 12:48:28 09/06/19 24 09/06/2023 CMP, COMPR EHENS MADISON METAB OLIC PANEL creatinine 0.8 mg/dL 0.6 - 1.3 Not Available [facility] [address] [facility] [address], [place], [address], 09/06/2023 12:48:28 09/06/19 24 09/06/2023 CMP, COMPR EHENS MADISON METAB OLIC PANEL BUN/creatini ne ratio 16 calc 10 - 25 Not Available [facility] [address] [facility] [address], [place], [address], 09/06/2023 12:48:28 09/06/19 24 09/06/2023 CMP, COMPR EHENS MADISON METAB OLIC PANEL GFR 90 mL/mi n/1.7 3m^2 >60 GFR < 60 mL/mi n for 3 or more month s may be indic ative of Kidne y Disea se. The GFR is based on the CKD-E PI 2020 equat ion. To calcu late the new GFR from a previ ous Creat inine resul t go to: https ://cara tomlinson/steve barrios s/kdo qi/gf r&5Fc alcul ator. Not Available [facility] [address], [place], [address], 09/06/2023 12:48:28 09/06/19 24 09/06/2023 CMP, COMPR EHENS MADISON METAB OLIC PANEL sodium 136 mmol/ L 135 - 145 Not Available [facility] [address], [place], [address], 09/06/2023 12:48:28 09/06/19 24 09/06/2023 CMP, COMPR EHENS MADISON METAB OLIC PANEL potassium 4.4 mmol/ L 3.5 - 5.5 Not Available [facility] [address], [place], [address], 09/06/2023 12:48:28 09/06/19 24 09/06/2023 CMP, COMPR EHENS MADISON METAB OLIC PANEL chloride 105 mmol/ L 100 - 115 Not Available [facility] [address] [facility] [address], [place], [address], 09/06/2023 12:48:28 09/06/19 24 09/06/2023 CMP, COMPR EHENS MADISON METAB OLIC PANEL CO2 25 mmol/ L 21 - 33 Not Available [facility] [address], [place], [address], 09/06/2023 12:48:28 09/06/19 24 09/06/2023 CMP, COMPR EHENS MADISON METAB OLIC PANEL calcium 8.6 mg/dL 8.8 - 10.6 low Not Available [facility] [address], [place], [address], 09/06/2023 12:48:28 09/06/19 24 09/06/2023 CMP, COMPR EHENS MADISON METAB OLIC PANEL total protein 6.2 g/dL 6.2 - 8.6 Not Available [facility] [address], [place], [address], 09/06/2023 12:48:28 09/06/19 24 09/06/2023 CMP, COMPR EHENS MADISON METAB OLIC PANEL globulin 2.4 g/dL 1.3 - 4.0 Not Available [facility], [place], [address], 09/06/2023 12:48:28 09/06/19 24 09/06/2023 CMP, COMPR EHENS MADISON METAB OLIC PANEL albumin 3.8 g/dL 3.5 - 5.7 Not Available [facility] [address], [place], [address], 09/06/2023 12:48:28 09/06/19 24 09/06/2023 CMP, COMPR EHENS MADISON METAB OLIC PANEL A/G ratio 1.6 calc 1.0 - 2.8 Not Available [facility] [address] [place], [place] [address]y [address], [place], [address], 09/06/2023 12:48:28 09/06/19 24 09/06/2023 CMP, COMPR EHENS MADISON METAB OLIC PANEL AST (SGOT) 11 U/L 13 - 39 low Not Available [facility], [place], [address], 09/06/2023 12:48:28 09/06/19 24 09/06/2023 CMP, COMPR EHENS MADISON METAB OLIC PANEL ALT (SGPT) 16 U/L 7 - 52 Not Available [facility] [address] [place], [address], 09/06/2023 12:48:28 09/06/19 24 09/06/2023 CMP, COMPR EHENS MADISON METAB OLIC PANEL alkaline phosphatase 46 U/L 20 - 128 Not Available [facility] [address] [facility] [address] [place], [address], 09/06/2023 12:48:28 09/06/19 24 09/06/2023 CMP, COMPR EHENS MADISON METAB OLIC PANEL total bilirubin 0.4 mg/dL 0.3 - 1.0 Not Available [facility] [address] [facility] [address] [place], [address], 09/06/2023 12:48:28 09/06/19 24 09/06/2023 TSH W/REF JABARI TO FT4 TSH w/reflex FT4 1.6400 uIU/m L 0.2700 - 4.2000 Not Available [facility] [address] [facility] [address] [place], [address], 09/06/2023 15:05:58 09/06/19 24 09/06/2023 VITAM IN D, 25-HY DROXY vitamin D, 25 hydroxy 26.00 NG/mL >=30.0 0 low The U.S. Kidne y Found ation consi ders level s < 30 ng/mL to be insuf ficie nt or defic ient. Not Available [facility] [address] [facility] [address] [place], [address], 09/06/2023 15:15:11 09/06/19 24 09/07/2023 CA-12 5 cancer antigen (Ca) 125 14.5 U/mL 0.0-38 .1 normal Kathie Diagn ostic s Elect kathie milum inesc ence Immun oassa y (ECLI A) Value s obtai matt with diffe rent assay metho ds or kits canno t be used inter ramos eably . Resul ts canno t be inter prete d as absol eklutna evide nce of the prese nce or absen ce of chris gu se. Not Available [facility] [address], [place], [address], 09/07/2023 08:15:23 09/06/19 24 09/06/2023 VENIP UNCTU RE results Compl ete Not Available [facility] [address], [place], [address], 09/06/2023 08:31:17 11/09/19 24 11/01/2023 scree daryn bilat eral mammo gram with impla nts with tomos ynthe sis INDICA TION: Female 48 years. - Screen ing mammog eder. TECHNI QUE: SCREEN ING 3D BILATE RAL MAMMOG EDER WITH IMPLAN TS WITH TOMOSY NTHESI S Bilate ral CC and MLO views of the breast s were obtain ed. Implan t displa cement views were includ ed. Digita l breast tomosy nthesi s was perfor med in the CC and MLO planes . Comput er aided detect ion (CAD) softwa re was utiliz ed. COMPAR ABEL: Previo us mammog antonietta dated 023 and 021. BREAST DENSIT Y: C: Hetero geneou sly dense MAMMOG EDER FINDIN GS: There are intact bilate ral breast implan ts. There is a focal asymme try within the retroa reolar LEFT breast . There is no distor tion of the tiffany ecture . There are no suspic ious groupi ngs of microc alcifi cation s. No abnorm al skin thicke daryn is noted. There is no abnorm al nipple retrac tion. IMPRES EVELYNE: Asymme try LEFT breast . BI-RAD S catego ry: 0: Incomp lete Findin gs; need additi onal imagin g evalua tion and/or prior mammog antonietta for compar abel RECOMM ENDATI ONS: 1. Spot compre ssion CC and MLO views of the LEFT breast . 2. Target ed LEFT breast ultras ound. The patien t will be notifi ed of these findin gs as requir ed by Julia damian. Notes: -Mammo graphy should be supple mented by routin e clinic al and monthl y self exams. Any decisi on to biopsy should be based on clinic al assess ment, as malign rosy may not be detect able by imagin g alone. Electr onical ly Signed By: Tien salmeron D.O., Board Certif ied Radiol ogist Sign Date: [email or web address] [facility] All Locations, [place], [address], 11/10/2023 14:15:49 04/28/19 25 04/27/2024 US, breas t, unila teral , limit ed INDICA TION: Female 49 years. - R92.8 Oth abn and inconc lusive findin gs on dx imagin g of breast TECHNI QUE: DIAGNO STIC DIGITA L BREAST TOMOSY NTHESI S UNILAT ERAL, US LT BREAST LIMITE D. CC and MLO views of the LEFT breast were obtain ed. Implan t displa cement views were includ ed. Digita l breast tomosy nthesi s was perfor med in the CC and MLO planes . Comput er aided detect ion (CAD) softwa re was utiliz ed. COMPAR ABEL: Previo us mammog antonietta dated 024 and 023. BREAST DENSIT Y: C: The breast s are hetero geneou sly dense, which may obscur e small masses MAMMOG EDER FINDIN GS: The previo usly descri bed asymme try within the retroa reolar LEFT breast is again identi fied. There are no suspic ious groupi ngs of calcif icatio ns. The skin is not thicke matt. There is no retrac tion of the nipple s. ULTRAS OUND FINDIN GS: LEFT breast : Target ed sonogr aphic images of the retroa reolar LEFT breast were obtain ed. Dense glandu lar tissue is identi fied within the area of concer n. No solid or cystic nodule s are noted. IMPRES EVELYNE: Dense glandu lar tissue corres ponds to the mammog raphic findin gs. BI-RAD S catego ry: 2: Benign findin gs RECOMM ENDATI ONS: Annual screen ing mammog eder. The patien t will be notifi ed of these findin gs as requir ed by Julia damian. Notes: -Mammo graphy should be supple mented by routin e clinic al and monthl y self exams. Any decisi on to biopsy should be based on clinic al assess ment, as malign rosy may not be detect able by imagin g alone. Electr onical ly Signed By: Tien salmeron D.O., Board Certif ied Radiol ogist Sign [facility] All Locations, [place], [address], 04/30/2024 16:40:46 04/28/19 25 04/27/2024 MAMMO , diagn ostic , tomos ynthe sis, unila teral INDICA TION: Female 49 years. - R92.8 Oth abn and inconc lusive findin gs on dx imagin g of breast TECHNI QUE: DIAGNO STIC DIGITA L BREAST TOMOSY NTHESI S UNILAT ERAL, US LT BREAST LIMITE D. CC and MLO views of the LEFT breast were obtain ed. Implan t displa cement views were includ ed. Digita l breast tomosy nthesi s was perfor med in the CC and MLO planes . Comput er aided detect ion (CAD) softwa re was utiliz ed. COMPAR ABEL: Previo us mammog antonietta dated 024 and 023. BREAST DENSIT Y: C: The breast s are hetero geneou sly dense, which may obscur e small masses MAMMOG EDER FINDIN GS: The previo usly descri bed asymme try within the retroa reolar LEFT breast is again identi fied. There are no suspic ious groupi ngs of calcif icatio ns. The skin is not thicke matt. There is no retrac tion of the nipple s. ULTRAS OUND FINDIN GS: LEFT breast : Target ed sonogr aphic images of the retroa reolar LEFT breast were obtain ed. Dense glandu lar tissue is identi fied within the area of concer n. No solid or cystic nodule s are noted. IMPRES EVELYNE: Dense glandu lar tissue corres ponds to the mammog raphic findin gs. BI-RAD S catego ry: 2: Benign findin gs RECOMM ENDATI ONS: Annual screen ing mammog eder. The patien t will be notifi ed of these findin gs as requir ed by Julia damian. Notes: -Mammo graphy should be supple mented by routin e clinic al and monthl y self exams. Any decisi on to biopsy should be based on clinic al assess ment, as malign rosy may not be detect able by imagin g alone. Electr onical ly Signed By: Tien salmeron D.O., Board Certif ied Radiol ogist Sign Date: [facility] All Locations, [place], [address], 04/30/2024 16:40:46 12/26/1912/24/2024 XR, shoul lucrecia TECHNI QUE: Left should er radiog raphs, 3 views. HISTOR Y: Should er pain. COMPAR ABEL: None availa ble. FINDIN GS: BONES: Bone [...] er. Jeevan wilkinson MD 2024 3:35 PM (/Luis Angel mcgee) Electr onical ly Signed By: Jeevan Triana Sign Date: [email or web address] [facility] All Locations, [place], [address], 12/27/2024 07:36:14 Result Notes Documentation Provider Name and Address Organization Details Recorded Time Mammo, Diagnostic, Tomosynthesis, Unilateral : INDICATION: Female 49 years. - R92.8 Oth abn and inconclusive findings on dx imaging of breast TECHNIQUE: DIAGNOSTIC DIGITAL BREAST TOMOSYNTHESIS UNILATERAL, US LT BREAST LIMITED. CC and MLO views of the LEFT breast were obtained. Implant displacement views were included. Digital breast tomosynthesis was performed in the CC and MLO planes. Computer aided detection (CAD) software was utilized. COMPARISON: Previous mammograms dated 11/01/2023 and 07/24/2022. BREAST DENSITY: C: The breasts are heterogeneously dense, which may obscure small masses MAMMOGRAM FINDINGS: The previously described asymmetry within the retroareolar LEFT breast is again identified. There are no suspicious groupings of calcifications. The skin is not thickened. There is no retraction of the nipples. ULTRASOUND FINDINGS: LEFT breast: Targeted sonographic images of the retroareolar LEFT breast were obtained. Dense glandular tissue is identified within the area of concern. No solid or cystic nodules are noted. IMPRESSION: Dense glandular tissue corresponds to the mammographic findings. BI-RADS category: 2: Benign findings RECOMMENDATIONS: Annual screening mammogram. The patient will be notified of these findings as required by [place] law. Notes: -Mammography should be supplemented by routine clinical and monthly self exams. Any decision to biopsy should be based on clinical assessment, as malignancy may not be detectable by imaging alone. Electronically Signed By: Tien Bautista D.O., Board Certified Radiologist Sign Date: 27-APR-24 Jayesh goldstein [facility] [employer] ePrint 04/30/2024 16:40:47 Xr, Shoulder : TECHNIQUE: Left shoulder radiographs, 3 views. HISTORY: Shoulder pain. COMPARISON: None available. FINDINGS: BONES: Bone mineralization is normal. The osseous structures are intact, without acute or healing fracture or destructive abnormality. JOINTS: Joint relationships are maintained. No significant degenerative changes. SOFT TISSUES: No appreciable soft tissue abnormality. OTHER: The visualized left lung is clear. IMPRESSION: Unremarkable left shoulder. Jeevan Mohamud MD 12/25/2024 3:35 PM (/[place]) Electronically Signed By: Jeevan Mohamud Sign Date: 25-DEC-24 LOGAN DEL ANGEL [address], [place], [address], [facility], [facility] 12/27/2024 07:36:14 Problems Name Problem SNOMED Code Status Onset Date Resolution Date Notes Provider Name and Address Organization Details Recorded Time Polyneuropa thy associated with another disorder 359001832 Active 2011 Roula Gaytanhazel [facility], [facility] 6 14:08:24 Hypoglycemi a 277216875 Active 2011 Roula Lukashazel [facility], [facility] 6 14:08:24 Malaise and fatigue 085077957 Active 2011 Roula Lukashazel [facility], [facility] 6 14:08:24 Polycystic ovary syndrome 046545270 Active 2019 Genesis Roque, DO [address], [place], [address], [facility], [facility] 0 14:49:03 Abnormal weight 07747341 Active 2019 Genesis Roque, DO [address], [place], [address], [facility], [facility] 0 14:49:57 Slow transit constipatio n 52316302 Active 2021 Harmony Clemencia [facility], [facility] 2 13:05:45 Calcified granuloma of lung 4702526793068 9100 Active 2022 Palmira LASSITER [employer] [address], [place], [address], [facility], [facility] 3 16:11:01 Chronic insomnia 141770139 Active 2022 Palmira LASSITER [employer] [address], [place], [address], [facility], [facility] 3 16:11:22 Hyperlipide malgorzata 99173958 Active 2022 Palmira LASSITER [employer] [address], [place], [address], [facility], [facility] 3 16:12:39 Polyp of vaginal wall 840132743 Active 2022 Palmira LASSITER [employer] [address], [place], [address], [facility], [facility] 3 16:29:08 Flushing of face due to rosacea 889676035 Active 2023 Palmira LASSITER [employer] [address], [place], [address], [facility] Physician [facility], [facility] 4 13:09:11 Acute sinusitis 45363940 Active 2023 Palmira LASSITER [employer] [address], [place], [address], [facility] Physician [facility], [facility] 4 13:10:26 Rosacea 183119653 Active 2023 Palmira LASSITER [employer] [address], [place], [address], [facility], [facility] 4 13:12:08 Chronic diarrhea 794133133 Active 2023 Cheryl Galeas [employer] [address], [place], [address], [facility], [facility] 4 22:47:51 Ovarian pain 965641527 Active 2023 Cheryl Galeas [employer] [address], [place], [address], [facility], [facility] 4 22:47:52 Family history of malignant neoplasm of ovary 637934116 Active 2023 Cheryl Galeas [employer] [address], [place], [address], [facility]ician [facility], [facility] 4 22:47:55 Vitamin D deficiency 72546011 Active 2023 Cheryl Galeas, [employer] [address], [place], [address], [facility], [facility] 4 22:49:01 Insomnia 096800607 Active 2023 Cheryl Galeas, [employer] [address], [place], [address], [facility] Physician [facility], [facility] 4 22:49:17 Post-surgic al malabsorpti on 658829135 Active 2023 LOGAN DEL ANGEL [address], [place], [address], [facility] Physician [facility], [facility] 12:28:26 Problem Notes None recorded. Procedures Surgical History Date Name Laterality Status Provider Name and Address Organization Details Recorded Time 01/01/20 25 Aspiration Major Joint/Bursa completed LOGAN DEL ANGEL [address], [place], [address], [facility] Physician [facility], [facility] 12/31/2024 11:31:29 04/28/19 25 mammography completed Nissa Gallo [facility], [facility] 12/21/2024 08:21:35 08/18/19 23 excision of colon completed Cheryl Galeas, [employer] [address], [place], [address], [facility], [facility] 09/05/2023 15:46:16 04/01/19 22 Skin: Destruction of Benign/Premalig nant lesions completed Genesis Roque DO [address], [place], [address], [facility], [facility] 04/01/2021 13:39:00 12/03/19 21 EGD-Upper Endoscopy completed Harmony Khanna [facility], [facility] 12/02/2020 20:27:18 11/19/19 21 Colonoscopy completed Harmony Khanna [facility], [facility] 11/18/2020 12:49:35 02/25/19 21 Quality Medication Reviewed and Updated completed [facility], [facility] 02/26/2020 10:39:25 02/25/19 21 Quality (DM or HTN) BP Diastolic < 80 completed [facility], [facility] 02/26/2020 10:39:30 02/25/19 21 Quality Tobacco Non- User completed [facility], [facility] 02/26/2020 10:39:23 02/25/19 21 Quality (DM or HTN ) BP Systolic < 130 completed [facility], [facility] 02/26/2020 10:39:28 02/25/19 21 Quality BMI with follow up completed [facility], [facility] 02/26/2020 10:39:26 02/17/19 21 Mammogram Screening completed Bobbi Lynne [facility], [facility] 02/19/2020 19:02:51 10/29/19 20 Quality Medication Reviewed and Updated completed [facility], [facility] 10/29/2019 14:04:55 10/29/19 20 Quality (DM or HTN) BP Diastolic < 80 completed [facility], [facility] 10/29/2019 14:05:01 10/29/19 20 Quality Tobacco Non- User completed [facility], [facility] 10/29/2019 14:04:58 10/29/19 20 Quality (DM or HTN ) BP Systolic < 130 completed [facility], [facility] 10/29/2019 14:04:59 10/29/19 20 Quality BMI with follow up completed [facility], [facility] 10/29/2019 14:04:56 09/10/19 20 Walk-In Pre Employment Physical completed Fransisco Mejía MD [address], [address], [facility] Physician [facility], [facility] 09/10/2019 16:40:00 06/08/19 19 Date of Last Mammogram completed [facility], [facility] 10/29/2019 15:01:23 02/07/19 16 Colonoscopy completed Meryl Uri [facility], [facility] 10/29/2019 14:21:40 06/04/19 14 Walk-In Pre Employment Physical completed Fransisco Mejía MD [address], [address], [facility] Physician [facility], [facility] 06/03/2013 11:09:55 02/07/19 09 Tubal ligation completed Roula Hopson [facility], [facility] 02/13/2015 14:11:02 02/07/19 06 section completed Farhana Chavez [facility] 06/03/2013 10:07:16 02/07/18 77 Hernia repair completed Daily Juarez [facility] 06/03/2013 09:35:37 Imaging Results None recorded. Procedure Notes None recorded. Medical Equipment None Reported. Allergies Allergen ID Allergen Name Allergen Category Reaction Reaction Severity Criticality Documentation Date Start Date Code Code System Note Provider Name and Address Organization Details Recorded Time 7779948 amoxicill in medicatio n rash Not available low 01/07/2023 723 RxNorm Carmelita Brooks [facility], [facility] 3 13:41:20 497448 Bactrim medicatio n other Not available Not available 06/03/2013 00258 9 RxNorm Meryl Grewal [facility], [facility] 0 15:01:22 5950866 morphine medicatio n rash Not available Not available 12/21/2024 7052 RxNorm Nissa Gallo [facility], [facility] 5 08:14:16 423506 latex environme nt,medica tion Not available Not available Not available 09/10/2019 39381 91 RxNorm Nissa Cleo [facility], [facility], [facility] 5 10:35:34 894526 black pepper preparati on food respirato ry distress Not available Not available 09/10/2019 66502 4 RxNorm Meryl Grewal [facility], [facility] 0 15:01:22 Medications Name Sig Start Date [...] ne acetonide 55 mcg nasal spray aerosol Russell 2 spray(s) EVERY DAY by intranasa l [...] propionate 50 mcg/actuati on nasal spray,suspe nsion Russell 1 spray every day by intranasa l [...] Not Available Vitals Date Recorded Body height Body mass index (BMI) Body weight Pain severity - 0-10 verbal numeric rating [Score] - Reported Provider Name and Address Organization Details Last Updated DateTime 03/29/2024 167.64 cm 27.4 kg/m2 47001.7 g 6 Keli Johnston [facility] 03/29/2024 13:26:16 Date Recorded Body height Provider Name an d Address Organization Details Last Updated DateTime 08/15/2024 167.64 cm [facility] 08/15/2024 13:47:53 Date Recorded Body height Provider Name an d Address Organization Details Last Updated DateTime 09/08/2023 167.64 cm [facility] 09/08/2023 09:14:31 Date Recorded Body mass index (BMI) Body weight Provider Name and Address Organization Details Last Updated DateTime 12/21/2024 29.5 kg/m2 67308.4 g LOGAN DEL ANGEL [address], [place], [address], [facility], [facility] 12/21/2024 09:14:05 Date Recorded Body height Provider Name an d Address Organization Details Last Updated DateTime 12/21/2024 167.64 cm Nissa Gallo [facility], [facility] 12/21/2024 08:14:25 Date Recorded Body height Respiratory rate Body temperature Heart rate Oxygen saturation Pain severity - 0-10 verbal numeric rating [Score] - Reported Body mass index (BMI) Body weight Systolic And Diastolic Provider Name and Address Organization Details Last Updated DateTime 5 167.64 cm 16 /min 98 [degF] 80 /min 99 % 0 28.5 kg/m2 74472.4 1 g 110/80 mm[Hg] [facility] 5 10:38:29 Social History Question Answer Notes LastModified by Organizat ion Details LastModified Time Tobacco Smoking Status Current Every Day Smoker Indira Shai [facility], [facility] 04/01/2021 12:48:39 Do You Have An Advance Directive? No [email or web address] Information n ot available 10/29/2019 Do You Wear A Helmet When Biking? Yes [email or web address] Information not available 06/09/2022 Is Blood Transfusion Acceptable In An Emergency? Yes Information not available 04/01/2021 What Is Your Level Of Caffeine Consumption? Moderate [email or web address] Information not available 10/29/2019 How Much Tobacco Do You Chew? None [email or web address] Information not available 10/29/2019 In The 14 [...] Or Recreational Drugs Have You Used? Denies [email or web address] Information not available 10/29/2019 Education 2 Year College [email or web address] Information not available 06/09/2022 Have There Been Any Changes To Your Family Or Social Situation? No [email or web address] Information no t available 06/09/2022 Are There Any Guns Present In Your Home? No [email or web address] Information not available 06/09/2022 Alcohol Use 1-2 Per Week [email or web address] Information not available 06/03/2013 Year Quit Tobacco Use 2019 [email or web address] Information not available 10/29/2019 Marital Status [email or web address] Informatio n not available 06/09/2022 Do You Have A Medical Power Of Day Haul Youth Supervisor? No [email or web address] Information not available 06/09/2022 What Was The Date Of Your Most Recent Tobacco Screening? 12/31/2024 Information not available 12/31/2024 What Is Your Relationship Status? Information not available 04/01/2021 Do You Use Your Seat Belt Or Car Seat Routinely? Yes [email or web address] Information not available 06/09/2022 Are You Sexually Active? Yes [email or web address] Information not available 10/29/2019 Do You Have Smoke And Carbon Monoxide Detectors In Your Home? Yes [email or web address] Information not available 06/09/2022 At What Age Did You Start Smoking Tobacco? 24 Information not available 10/29/2019 Are You Passively [...] Many Years Have You Smoked Tobacco? 20 [email or web address] Information not available 10/29/2019 Sex: Female Functional [...] used smokeless tobacco? Never used smokeless tobacco [email or web address] Information not available 10/29/2019 Are you currently employed? 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 Never used electronic cigarettes Information not available 10/29/2019 What is your exercise level? Moderate Information not available 09/10/2019 Mental Status None recorded. Family History Relationship Description Onset Age of this Age Resolved Age Notes LastModified by Organization Details LastModified Time Mother Alive [email or web address] Not available 08:11:27 Mother Polyp of colon [email or web address] Not available 2024 08:11:27 Mother Hypertensive disorder [email or web address] Not available 2019 16:10:32 Mother Hypercholest erolemia [facility]-27 Not available 2024 08:11:27 Mother Asthma [email or web address] Not available 16:11:25 Mother Ankylodactyl y [facility]- Not available 2024 08:11:27 Father Alive [facility]-27 Not available 08:11:27 Father Diabetes mellitus [email or web address] Not available 2019 16:09:42 Father Myocardial infarction [email or web address] Not available 09/09 16:09:56 Father Heart disease [email or web address] Not available 2019 16:10:12 Father Hypertensive disorder [email or web address] Not available 2019 16:10:32 Father Hypercholest erolemia [email or web address] Not available 2024 08:11:27 Father Malignant neoplasm of skin [email or web address] Not available 10/28 13:51:40 Medical History Condition Response Cancer (location) N Other Y Gout N Thyroid Disease N Kidney Stones N Emphysema/COPD N Measles/Mumps N Sexually Transmitted Disease N Depression N Prostate Problems N Vascular Disease N Rash/Skin Condition N Amputation (location) N Parkinson's N Paralysis N Cardiac Pacemaker/defibrillator N Headaches/Migraines N Nerve Damage / Neuropathy N Arthritis N Sleep disorder/Insomnia N Heart disease / Heart Attack N Crohn's Disease N HIV/AIDS N Stroke/TIA N Colon Problems N High Cholesterol N Serious Injuries N Kidney Disease N Memory Loss/Alzheimer's N High blood pressure N Gallbladder disease N Congestive heart failure N Falls N Hormone Replacement N Blood Thinner Treatment N Alcohol Overuse N Nervous Breakdown N Lane's Esophagus N Anemia N Urinary Problems N Colon Polyps N Gastritis N Hospitalizations (other than operations) N Diabetes N Back pain N Rheumatic Fever N Bleeding Disorder N Cardiac Arrhythmias /irregular heart rat e N Osteopenia/Osteoporosis N Anxiety/Stress N Vision Problems N Asthma N Erectile / Sexual Dysfunction N Ostomies [...] high-dose, trivalent, PF 3 completed Chloe Wolf [facility] 07/28/2022 15:26:27 Influenza, high-dose, trivalent, PF 3 completed Meryl Grewal [facility] 10/29/2019 14:03:31 Influenza, split virus, quadrivalent, preservative 0 completed Chloe Wolf [facility] 07/28/2022 15:26:26 Influenza, MDCK, quadrivalent, PF 0 completed Shahnaz Moran [facility] 10/29/2019 15:13:19 Past Encounters Encounter ID Performer Location Encounter Start Date Encounter Closed Date Diagnosis/Indication Diagnosis SNOMED-CT Code Diagnosis ICD10 Code Diagnosis IMO Codes Diagnosis Note [id number] Fransisco Mejía MD [facility] [address] [place] [address] 06/03/2013 09:31:42 06/03/2013 11:18:17 General examination of patient [id number] Fransisco Mejía MD [facility] [address] [place] [address] 07/17/2014 08:57:10 07/17/2014 10:49:49 Sinusitis [id number] Allergic rhinitis [id number] Fransisco Mejía MD [facility] [address] [place] [address] 02/13/2015 13:30:56 02/13/2015 16:25:45 Acute urinary tract infection 425550456 N39.0 Vaginitis 31818840 N76.0 [id number] LOGAN Mandujano [facility] [address] [place] [address] 06/21/2015 09:11:44 06/21/2015 10:35:40 Acute sinusitis 84342120 J01.90 Cough 02441824 R05 [id number] [place] [place] [address] [place] [address] 07/23/2015 07:17:01 07/23/2015 07:58:53 Urinary tract infectious disease 38982818 N39.0 Candidiasis of vagina 72 155706 B37.3 [id number] Fransisco Mejía MD [facility] [address] [place] [address] 09/10/2019 16:00:40 09/10/2019 17:34:46 Adult health examination 882347319 Z00.00 Physical examination 588 0005 Z04.9 [id number] Genesis Roque DO [address] [address] 10/29/2019 13:40:43 10/30/2019 14:19:13 Endocrine/metabolic screening 710632906 Z13.228 Screening mammography 24 970559 Z12.31 SCHED MAMMO Administra tion of influenza vaccine 96129847 Z23 FLU VACC TODAY Ex-smoker 3918240 Z87.89 1 PT QUIT SMOKING THIS YEAR...SHE HAS DONE VERY WELL Chronic id iopathic constipation 47389372 K59.04 [employer] LIN[employer] 72MCG Polycystic ovary syndrome 041219315 E28.2 Solitary n odule of lung 106418437 R91.1 PT HAD CXR AND CHEST CT....SHE WAS TOLD NOT TO WORRY ABOUT ITWILL OBTAIN RECORDS AND FOLLOW ACCORDING TO [facility] CRITER[facility] Body mass index 25-29 - overweight 263682117 Z68.25 START ADIPEX IF CLEARED WITH EKG Vitamin B deficiency 479 17091 E53.9 Insomnia 990748753 G47.0 0 [id number] Genesis Roque DO [facility] [address] [place] [address] 02/26/2020 09:49:13 03/02/2020 20:40:56 Adult health examination 703424303 Z00.00 Screening for malignant neoplasm of cervix 504200152 Z12.4 PAP TODAY Gynecologi c examination 67638532 Z01.419 Screening for malignant neoplasm of rectum 527277011 Z12.12 IFOBT NEG Malaise and fatigue 2717 20060 R53.81 Body mass index 25-29 - overweight 877525009 Z68.25 START ADIPEX IF CLEARED WITH EKG Insomnia 350413192 G47.0 0 CHRONIC, STABLE, CONTINUE CURRENT MEDCIATION REGIMEN, LISTED ON MEDICATION LIST Risk of ex posure to communicable disease 260976589 Z20.9 Acute sinusitis 82516773 J01.90 Acute problem. Prescripti on drug management : Add meds to current as noted below. Needs monitoring to determine stability of condition. Vitamin D deficiency 347 42056 E55.9 VIT D LOW 27/ REC VIT D 5,000IU DAILY Screening for malignant neoplasm of colon 796084127 Z12.11 REF GI Solitary n odule of lung 247896234 R91.1 PT HAD CXR AND CHEST CT....SHE WAS TOLD NOT TO WORRY ABOUT ITWILL OBTAIN RECORDS AND FOLLOW ACCORDING TO [facility] CRITERIA Constipation 69611570 K5 9.00 CHRONIC, UNSTABLE, CHANGE MEDICATION S STATED IN MED LIST [id number] Genesis Roque DO [facility] [address] [place] [address] 04/01/2021 12:19:31 04/02/2021 14:04:27 Adult health examination 911331847 Z00.00 Preventive visit done today. Anticipato ry guidance given as noted below. ECG: sinus rhythm 514654 006 R94.31 ACUTE/STAB LE PT DUE FOR YEARLY EKG DONE IN OFFICE TODAY Increased body mass index 92627566 Z68.26 elevated BMI. Discussed diet and better therapeuti c lifestyle changes. Diet education 26898617 Z71.3 see above Screening for malignant neoplasm of cervix 294984788 Z12.4 CHRONIC, STABLE, PAP SMEAR PROCEDURE PREFORMED IN OFFICE TODAY Gynecologi c examination 50243151 Z01.419 CHRONIC, STABLE, PAP SMEAR PROCEDURE PREFORMED IN OFFICE TODAY Screening for malignant neoplasm of colon 447524573 Z12.11 ACUTE/STAB LE IFOBT NEG Polycystic ovary syndrome 114212806 E28.2 CHRONIC, UNSTABLE, PT COMPLAININ G OF PAINS ON THE RIGHT SIDE BY OVERIES Allergy to food 01701949 1 Z91.018 CHRONIC/UN STABLE PT COMPLAINS OF ALLERGY SYMPTOMS, REC ALLERGY PANEL,REF TO DR BEN Han. [place] XYZAL.... Vitamin D deficiency 347 12295 E55.9 VIT D LOW 27/ REC VIT D 5,000IU DAILY...RE C LIQUID VIT D Diverticul osis of colon 160836472 K57.30 CHRONIC, STABLE, CONTINUE CURRENT MEDCIATION REGIMEN, LISTED ON MEDICATION LIST Hyperlipidemia 43816578 E78.2 CHRONIC, STABLE, CONTINUE ON NO MEDICATION Chronic id iopathic constipation 81817069 K59.04 CHRONIC/UN STABLE PT TO TRY Hyperglycemia 92379473 R 73.9 ACUTE, STABLE, CONTINUE ON NO MEDICATION CHECKING A1C FOR 3 MONTH GLUCOSE LEVEL Labored breathing 744606 001 R06.09 ACUTE/UNST KIRSTIN REC CXR FOR FURTHER EVAL Lesion of skin of face 3674265303 06 L98.9 ACUTE/UNST ABLE SKIN LESION RIGHT FACE BY EYEBROW [id number] Kevin Weaver APRN [facility] [address] [facility] [place] [address] 07/14/2021 15:34:37 07/14/2021 18:02:19 Low back pain 414418281 M54.50 Kidney stone 59566180 N2 0.0 [id number] Genesis Roque DO [facility] [address] [facility] [address] [facility] [place] [address] 03/29/2022 12:14:45 03/29/2022 15:25:07 Insomnia 241690461 G47.00 Chronic/st able and doing well with trazodone, refill given. Follow-up in the next couple of months as planned [id number] Palmira LASSITER APRN [place] [address] 06/09/2022 15:44:36 06/14/2022 11:41:14 Adult health examination 784019503 Z00.00 Preventive visit done today. Anticipato ry guidance given as noted below. Hyperlipidemia 25439887 E78.2 ldl 114, advised reduce fats (try measuring) , otherwise continue with current dietf/u 6 months for repeat if desired Gynecologi c examination 83308005 Z01.419 exam completeva ginal wall polyp, refer to FLIGHT READINESS TECHNICIAN Screening for malignant neoplasm of cervix 095908002 Z12.4 pap today Tobacco de pendence syndrome 86413399 F17.290 tobacco counseling done and patient not willing to quit. Risks of tobacco reviewed with patient. Tobacco us e cessation education 708591946 Z71.6 see above Calcified granuloma of lung 2583484293 5728150 J84.10 stable in size, patient would like repeat ct chest for f/usmokes 3 ciggarette s daily , some days more Chronic insomnia 0088493 04 F51.04 would like to add hydroxyzin e to regimen to help with sleepf/u prn Polycystic ovary syndrome 004494459 E28.2 chronic problem, stable with no significan t clinical changes. Needs monitoring . Prescripti on drug management : Continue medication s as in med list. Follow up as scheduled. Polyp of vaginal wall 24 9147924 N84.2 new finding, refer to FLIGHT READINESS TECHNICIAN for further eval and bx if warranted Screening mammography 24 417173 Z12.31 mammo due [id number] DO CARLITA Alcantara [facility] [address] [place] [address] 07/01/2022 13:39:15 07/02/2022 06:49:49 Urinary tract infectious disease 48054591 N39.0 Urinalysis shows pyuria and hematuria present and we will culture this urine and treat with Cipro and follow-up if symptoms do not resolve. We will contact her with culture results. Slow trans it constipation 65154894 K59.01 Chronic/in termittent and uncontroll ed and feels that her constipati on issues may contribute to her UTI history. [id number] DO CARLITA Rodriguez [facility] [address] [place] [address] 11/27/2022 15:06:54 11/28/2022 10:31:26 Acute thoracic back pain 234227257 M54.6 Acute. Unstable. Needs further evaluation . See orders. Doubt compressio n fracture so will give prednisone . Muscle spa sm of thoracic back 8681975556 49624 M62.830 Acute. Unstable. Needs treatment. See orders. Use HMP 20 min tid. Family his tory of Ankylosing spondylitis 012489125 Z82.69 She will talk to her Primary about a Rheumatolo gist referral. Acute low back pain 2788 54465 M54.50 Acute. Unstable. Needs treatment. See orders. Ketorolac and Prednisone . UA is normal. [id number] DO CARLITA Alcantara [facility] [address] [place] [address] 01/05/2023 07:34:59 01/05/2023 17:00:58 Polycystic ovary syndrome 372976783 E28.2 Chronic/st able Hyperlipidemia 98024895 E78.2 Chronic/st able with labs ordered. Slow trans it constipation 61571883 K59.01 Chronic/in termittent and uncontroll ed and feels that her constipati on issues may contribute to her UTI history. Nausea 752564812 R11.0 Chronic/wo rsening Insomnia 917064587 G47.0 0 Chronic/st able and doing well with trazodone, refill given. Follow-up in the next couple of months as planned Spasm of back muscles 20 0221334 M62.830 Chronic/in termittent and controlled with cyclobenza esa in the past [id number] Palmira LASSITER APRN [facility] [address] [facility] [address] [facility] [place] [address] 04/25/2023 12:55:38 04/25/2023 13:28:14 Acute sinusitis 76082730 J01.90 acute, stable had been treated with zpack a 2 weeks ago without reliefyell ow thick discharge, will need f/u with pcp if no relief Rosacea 370509448 L71.9 acute on chronic issue, re start metrogel as below [id number] Cheryl Galeas APRN [facility] [address] [place] [address] 09/05/2023 14:46:13 09/07/2023 20:20:57 Screening for malignant neoplasm of cervix 237040510 Z12.4 pap done and will call her with results Adult heal th examination 778028272 Z00.00 routine eye and dental exams recommende dpap donelabs ordered Family his tory of malignant neoplasm of ovary 594086558 Z80.41 concerned so we discussed ca-125 and will review labs at follow-up Ovarian pain 904149610 N 94.89 ?? ovarian vs other ca-125 ordered and will order transvagin al US Chronic diarrhea 4051385 09 K52.9 ongoing since colon resections . Meds refilled and followed by GI Insomnia 698702267 G47.0 0 refilled her trazadone today Candidiasis of vagina 72 601168 B37.31 recurrent so meds sent and that way she has on hand when needed PRN Screening for malignant neoplasm of breast 856045593 Z12.39 mammo ordered AND WILL schedule accordingl y Vitamin D deficiency 347 52632 E55.9 due to questran she states vitamin D doesn't get absorbed and gets infusions so will order a level with abs [id number] Genesis Roque DO [facility] [place] [address] [place] [address] 09/08/2023 08:49:20 09/08/2023 12:42:06 Vitamin D deficiency 27933097 E55.9 Chronic/un controlled and she is currently getting IV therapy for this and will follow-up in 3 months Post-surgi oliver malabsorption 352607545 K91.2 Chronic/pe rsistent with secondary diarrhea and vitamin levels ordered and we will discuss this further at her next visit Polycystic ovary syndrome 685109749 E28.2 Chronic/st able with no changes Chronic diarrhea 0196165 09 K52.9 Chronic/pe rsistent secondary to her malabsorpt ion Chronic insomnia 1313033 04 F51.04 /Stable with no changes Hyperlipidemia 81317462 E78.2 Chronic/st able with labs ordered. [id number] Genesis Roque DO [facility] [place] [address] [place] [address] 03/29/2024 09:22:37 03/29/2024 13:47:40 Insomnia 338026245 G47.00 Chronic/st able and doing well with trazodone, refill given. Follow-up in the next couple of months as planned Nausea 063543263 R11.0 Chronic/wo rsening Spasm of back muscles 20 9562963 M62.830 Chronic/in termittent and controlled with cyclobenza esa in the past Chronic insomnia 0684599 04 F51.04 chronic/St able with no changes [id number] Genesis Karen, [facility] [address] [place] [address] 08/15/2024 06:13:56 08/15/2024 14:25:31 Insomnia 542183091 G47.00 Chronic/st able and doing well with trazodone, refill given. Follow-up in the next couple of months as planned Spasm of back muscles 20 1801847 M62.830 Chronic/in termittent and controlled with cyclobenza esa in the past Nausea 150197408 R11.0 Chronic/wo rsening Candidiasis of vagina 72 581243 B37.31 acute but recurrent Chronic diarrhea 0521422 09 K52.9 Chronic/pe rsistent secondary to her malabsorpt ion Moderate m ajor depression 126816 F32.1 10073 chronic and improved Acute urin destiny tract infection 037971469 N39.0 284304 [id number] Genesis Karen, DO [facility] [address] [place] [address] 12/21/2024 08:11:26 12/21/2024 19:17:18 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 Follow-up in the next couple of months as planned Body mass index 25-29 - overweight 275139677 E66.3 747169 Chronic with the addition of naltrexone to the bupropion Chronic pa in of left upper limb 1653144900 5013191 M25.512 G89.29 763691 Chronic and worsening with x-rays ordered and follow-up in 1 to 2 weeks [id number] Genesis Roque DO [facility] [address] [place] [address] 12/31/2024 10:23:54 01/01/2025 07:00:08 Impingement syndrome of left shoulder region 0836358587 75167 M75.42 0644845 Chronic/pe rsistent with some evidence of adhesive capsulitis associated with the impingemen t syndrome. A subacromia l injection was performed initially and we may need to do an intra-amanda cular injection if the subacromia l injection does not resolve symptoms. Adhesive c apsulitis of left shoulder 0415899856 96798 M75.02 1165416 Chronic and secondary to impingemen t syndrome. Intra-amanda cular injection may be necessary if the subacromia l injection does not resolve symptoms. Polycystic ovary syndrome 673335789 E28.2 Chronic/st able with no changes Chronic insomnia 3865921 04 F51.04 chronic/St able with no changes Health Concerns Section Related Observation LastModified by Organization Detai ls LastModified Time None Recorded Concern Status LastModified by Organization Details LastModified Time None Recorded Advance Directives Directive N: Payers Insurance Date Sequence Insurance Name Policy Number Policy Chawla Covered Member ID Chawla Member ID Guarantor Name 08/29/2019 1 [place] Dukeelle Jesus Arrieta [id number] Hannah Arrieta 07/23/2015 1 [place] [facility] (PPO) [id number] Mendez Arrieta [id number] Hannah Arrieta 07/17/2014 1 [place] [id number] Hannah Arrieta [id number] Hannah Arrieta 07/17/2014 1 *SELF PAY* Genia Arrieta 01/01/2025 2 [employer] [id number] Hannah Arrieta [id number] Hannah Arrieta 12/31/2024 1 [facility] [id number] Hannah Arrieta [id number] Hannah Arrieta 04/27/2024 1 *SELF PAY* , Genia Arrieta 04/27/2024 2 [place] [id number] Hannah Arrieta [id number] Hannah Arrieta 03/29/2024 1 *SELF PAY* Genia Arrieta 08/13/2024 1 [place] [id number] Hannah Arrieta [id number] Hannah Arrieta 04/29/2024 PAYMENT PLAN Hannah Arrieta 03/29/2024 [id number] Arrieta [id number] Hannah Arrieta 08/25/2023 1 [place] [id number] Mendezjennifer Arrieta [id number] Hannah Arrieta 07/15/2021 1 [place] [id number] Mendez Arrieta [id number] Hannah Arrieta 08/29/2019 1 [place] Arrieta [id number] Hannah Arrieta 09/10/2019 1 [place] [employer] Hannah Arrieta [id number] Hannah Arrieta 10/29/2019 1 *SELF PAY* Genia Arrieta 10/29/2019 2 [place] [id number] Hannah Arrieta [id number] Hannah Arrieta Notes Date Note Type Note Provider Name and Address Organization Details Recorded Time 09/08/2023 text/html This 48-year-old female presents via telehealth video visit in follow-up of her recent labs related to hyperlipidemia, malabsorption syndrome and chronic vitamin D deficiency. She has been getting IV treatments for her vitamin D because of her malabsorption and continues to be low with vitamin D level at 26. Kidney and liver functions were normal. Cholesterol shows the LDL to be elevated and she does take cholestyramine for her chronic diarrhea and malabsorption syndrome and is hopeful that that will improve her cholesterol levels. CBC was normal This visit was conducted via our telehealth video visit service. Provider location: in office Patient location: at home address on file Visit Participants in addition to provider and patient: none Patient has given verbal consent to telehealth visit. LOGAN DEL ANGEL [address], [place], [address], [facility] [employer] 09/08/2023 12:41:22 03/29/2024 text/html This 48-year-old female presents in follow-up after recent emergency room visit. She was having lower abdominal pain and has had a previous bowel resection and is concerned about the anastomosis and does not want to end up with a colostomy. The CT scan was reassuring although there is uterine fibroid and some fluid present and this may be what is causing some of her pain. She is not having significant dysfunctional bleeding but occasionally has a brownish discharge vaginally. She denies any rectal bleeding. We discussed getting into the diamond cutter to review the fibroid situation and plan accordingly. this visit was conducted via our telehealth video visit service. Provider location: in office Patient location: at home address on file Visit Participants in addition to provider and patient: none Patient has given verbal consent to telehealth visit. LOGAN DEL ANGEL [address], [place], [address], [employer] [place] [employer] 03/29/2024 13:47:02 08/15/2024 text/html This 49-year-old female presents via telehealth video visit in follow-up of her insomnia, muscle spasm of the back, nausea, vaginal candidiasis, malabsorption syndrome/chronic diarrhea, major depression and also has acute UTI symptoms. This visit was conducted via our telehealth video visit service. Provider location: in office Patient location: at home address on file Visit Participants in addition to provider and patient: none Patient has given verbal consent to telehealth visit. LOGAN DEL ANGEL [address], [place], [address], [facility] [facility], [facility] 08/15/2024 14:23:14 12/21/2024 text/html This 49-year-old female presents in follow-up of her multiple medical problems via telehealth video visit. She needs refills of medications. She is also having left shoulder pain and we discussed getting an x-ray and then evaluating after the x-ray and we will see her back in 2 weeks. This visit was conducted via our telehealth video visit service. Provider location: in office Patient location: at home address on file Visit Participants in addition to provider and patient: none Patient has given verbal consent to telehealth visit. LOGAN DEL ANGEL [address], [place], [address], [facility] 12/21/2024 19:17:11 12/31/2024 text/html This 49-year-old female presents in [...] does not improve symptoms. LOGAN DEL ANGEL [address], [place], [address], [facility], [facility] 01/01/2025 06:59:55 OBGyn Episode No OBEpisode recorded.
--- OUTSIDE RECORDS SUMMARY | 2025-02-02 14:17 | XMS_ITS | Continuity of Care Document ---
Author Organization [facility] [employer], [facility] Address [address] [place] [address] Care Team Providers Care Manager Payer Name Role Phone DINORA ROQUE Primary Care Provider DINORA ROQUE Referring Provider [phone] EDVIN PERRY Primary Care Provider [phone] DINORA ROQUE Primary Care Provider Assessment No assessment recorded. Plan of Treatment Reminders Order Date Submit Date Provider Last Modified By Organization Details Last Modified Time Details Appointments None recorded. Lab None recorded. Referral None recorded. Procedures None recorded. Surgeries None recorded. Imaging XR, shoulder 2024 [facility], [facility], All Locations, [place], [address], 5 15:46:08 Medication Orders trazodone 150 mg tablet 2024 [facility] #00029, [address], [id number], 5 09:12:45 metronidazo le 0.75 % topical gel 2024 025 [facility] #75477, [address], [id number], 5 09:12:49 Cholestyram ine Light 4 gram powder for suspension in a packet 2024 [facility] #96150, [address], [place], [place], [id number], 5 09:12:44 Imodium A-D 1 mg/7.5 mL oral liquid 2024 [facility] #38665, [address], [place], [place], [id number], 5 09:12:46 loperamide 2 mg capsule 2024 [facility] #60518, [address], [place], [place], [id number], 5 09:12:43 simethicone 250 mg capsule 2024 [facility] #14373, [address], [place], [place], [id number], 5 09:12:44 prochlorper azine maleate 10 mg tablet 2024 [facility] #61718, [address], [place], [place], [id number], 5 09:12:44 ondansetron 8 mg disintegrat ing tablet 2024 [facility] #55077, [address], [place], [place], [id number], 5 09:12:49 cyclobenzap rine 10 mg tablet 2024 [facility] #18329, [address], [place], [place], [id number], 5 09:12:47 levocetiriz ine 5 mg tablet 2024 [facility] #15829, [address], [id number], 5 09:12:48 Diflucan 150 mg tablet 2024 [facility] #19914, [address], [place], [place], [id number], 5 09:12:46 hydroxyzine HCl 50 mg tablet 2024 [facility] #06310, [address], [place], [place], [id number], 5 09:12:46 naltrexone 50 mg tablet 2024 [facility] #12706, [address] [facility] [address], [place], [place], [id number], 5 09:15:47 bupropion HCl 75 mg tablet [address] [facility] #86654, [address], [place], [id number], 5 09:13:49 Patient TargetsNo targets recorded. Patient Instructions Encounter Date Encounter Id Patient Instructions Last Modified By Organization Details Last Modified Time 12/21/2024 [id number] learning about healthy weight [email or web address] Not available [...] Signed By: Jeevan Triana Sign Date: [email or web address] [facility] All Locations, [place], [address], 12/27/2024 07:36:14 Result Notes None recorded. Problems Name Problem SNOMED Code Status Onset Date Resolution Date Notes Provider Name and Address Organization Details Recorded Time Polyneuropa thy associated with another disorder 306574490 Active 2011 [facility], [facility] 6 14:08:24 Hypoglycemi a 814002576 [facility] 6 14:08:24 Malaise and fatigue 540453050 Active 2011 [facility] 6 14:08:24 Polycystic ovary syndrome 790391563 Active 2019 Dinora Roque, DO [address], [place], [address], [facility], [facility] 0 14:49:03 Abnormal weight 28297543 Active 2019 Dinora Hoods, DO [address], [place], [address], [facility], [facility] 0 14:49:57 Slow transit constipatio n 72672017 Active 2021 [facility] 2 13:05:45 Calcified granuloma of lung 4414889700478 9100 Active 2022 Palmira LASSITER JAILKEEPER [address], [place], [address], [facility], [facility] 3 16:11:01 Chronic insomnia 116817553 Active 2022 Palmira LASSITER JAILKEEPER [address], [place], [address], [facility], [facility] 3 16:11:22 Hyperlipide malgorzata 75865604 Active 2022 Palmira LASSITER JAILKEEPER [address], [place], [address], [facility], [facility] 3 16:12:39 Polyp of vaginal wall 505374578 Active 2022 Palmira LASSITER JAILKEEPER [address], [place], [address], [facility], [facility] 3 16:29:08 Flushing of face due to rosacea 040802583 Active 2023 Palmira LASSITER JAILKEEPER [address], [place], [address], [facility], [facility] 4 13:09:11 Acute sinusitis 70369880 Active 2023 Palmira LASSITER JAILKEEPER [address], [place], [address], [facility], [facility] 4 13:10:26 Rosacea 728743082 Active 2023 Palmira LASSITER JAILKEEPER [address], [place], [address], [facility], [facility] 4 13:12:08 Chronic diarrhea 533200747 Active 2023 Cheryl Galeas JAILKEEPER [address], [place], [address], [facility], [facility] 4 22:47:51 Ovarian pain 741737898 Active 2023 Cheryl Galeas, JAILKEEPER [address], [place], [address], [facility], [facility] 4 22:47:52 Family history of malignant neoplasm of ovary 023216594 Active 2023 Cheryl Galeas, JAILKEEPER [address], [place], [address], [facility], [facility] 4 22:47:55 Vitamin D deficiency 57723272 Active 2023 Cheryl Galeas, JAILKEEPER [address], [place], [address], [facility], [facility] 4 22:49:01 Insomnia 707662280 Active 2023 Cheryl Galeas, JAILKEEPER [address], [place], [address], [facility], [facility] 4 22:49:17 Post-surgic al malabsorpti on 958844308 Active 2023 LOGAN DEL ANGEL [address], [place], [address], [facility], [facility] 12:28:26 Problem Notes None recorded. Procedures Surgical History Date Name Laterality Status Provider Name and Address Organization Details Recorded Time 01/01/20 25 Aspiration Major Joint/Bursa completed LOGAN DEL ANGEL [address], [place], [address], [facility], [facility] 12/31/2024 11:31:29 04/28/19 25 [facility]ography [facility] 12/21/2024 08:21:35 08/18/19 23 excision of colon completed Cheryl Galeas, JAILKEEPER [address], [place], [address], [facility], [facility] 09/05/2023 15:46:16 04/01/19 22 Skin: Destruction of Benign/Premalig nant lesions completed Dinora Roque DO [address], [place], [address], [facility], [facility] 04/01/2021 13:39:00 12/03/19 21 EGD-Upper Endoscopy completed Harmony Khanna [facility], [facility] 12/02/2020 20:27:18 11/19/19 21 Colonoscopy completed Harmony Khanna [facility], [facility] 11/18/2020 12:49:35 02/25/19 21 Quality Medication Reviewed and Updated completed [facility], [facility] 02/26/2020 10:39:25 02/25/19 21 Quality (DM or HTN) BP Diastolic < 80 completed [facility], [facility] 02/26/2020 10:39:30 02/25/19 21 Quality Tobacco Non- User completed [facility], [facility] 02/26/2020 10:39:23 02/25/19 21 Quality (DM or HTN ) BP Systolic < [address] [facility], [facility] 02/26/2020 10:39:28 02/25/19 21 Quality BMI with follow up completed [facility], [facility] 02/26/2020 10:39:26 02/17/19 21 Mammogram Screening completed Bobbi Lynne [facility], [facility] 02/19/2020 19:02:51 10/29/19 20 Quality Medication Reviewed and Updated completed [facility], [facility] 10/29/2019 14:04:55 10/29/19 20 Quality (DM or HTN) BP Diastolic < 80 completed [facility], [facility] 10/29/2019 14:05:01 10/29/19 20 Quality Tobacco Non- User completed [facility], [facility] 10/29/2019 14:04:58 10/29/19 20 Quality (DM or HTN ) BP Systolic < [address] [facility], [facility] 10/29/2019 14:04:59 10/29/19 20 Quality BMI with follow up completed [facility] 10/29/2019 14:04:56 09/10/19 20 Walk-In Pre Employment Physical completed Fransisco Mejía MD [address], [address], [facility], [facility] 09/10/2019 16:40:00 06/08/19 19 Date of Last Mammogram completed [facility], [facility] 10/29/2019 15:01:23 02/07/19 16 Colonoscopy completed [facility] 10/29/2019 14:21:40 06/04/19 14 Walk-In Pre Employment Physical completed Fransisco Mejía MD [address], [place], [address], [facility], [facility] 06/03/2013 11:09:55 02/07/19 09 Tubal ligation completed Roula Hopson [facility] 02/13/2015 14:11:02 02/07/19 06 section completed Farhana Chavez [facility] 06/03/2013 10:07:16 02/07/18 77 Hernia repair completed Daily Juarez [facility] 06/03/2013 09:35:37 Imaging Results None recorded. Procedure Notes None recorded. Medical Equipment None Reported. Allergies Allergen ID Allergen Name Allergen Category Reaction Reaction Severity Criticality Documentation Date Start Date Code Code System Note Provider Name and Address Organization Details Recorded Time 5445046 amoxicill in medicatio n rash Not available low 01/07/2023 723 RxNorm Carmelita Brooks [facility], [facility] 3 13:41:20 309856 Bactrim medicatio n other Not available Not available 06/03/2013 34228 9 RxNorm Meryl Grewal [facility] 0 15:01:22 8802163 morphine medicatio n rash Not available Not available 12/21/2024 7052 RxNorm Nissa Gallo [facility] 5 08:14:16 871720 latex environme nt,medica tion Not available Not available Not available 09/10/2019 30014 91 RxNorm Nissa Gallo [facility] 5 10:35:34 061657 black pepper preparati on food respirato ry distress Not available Not available 09/10/2019 32074 4 RxNorm Meryl Grewal [facility] 0 15:01:22 Medications Name Sig Start Date [...] ne acetonide 55 mcg nasal spray aerosol Maxatawny 2 spray(s) EVERY DAY by intranasa l [...] propionate 50 mcg/actuati on nasal spray,suspe nsion Maxatawny 1 spray every day by intranasa l [...] Available Not Available Vitals Date Recorded Body mass index (BMI) Body weight Provider Name and Address Organization Details Last Updated DateTime 12/21/2024 29.5 kg/m2 20870.4 g LOGAN DEL ANGEL [address], [place], [address], [place] - [facility], [facility] 12/21/2024 09:14:05 Date Recorded Body height Provider Name an d Address Organization Details Last Updated DateTime 12/21/2024 167.64 cm Nissa Gallo [facility], [facility] 12/21/2024 08:14:25 Social History Question Answer Notes LastModified by Organizat ion Details LastModified Time Tobacco Smoking Status Current Every Day Smoker Indira Ramoslesly goldstein [facility], [facility] 04/01/2021 12:48:39 Do You Have An Advance Directive? No [email or web address] Information n ot available 10/29/2019 Do You Wear A Helmet When Biking? Yes [email or web address] Information not available 06/09/2022 Is Blood Transfusion Acceptable In An Emergency? Yes Information not available 04/01/2021 What Is Your Level Of Caffeine Consumption? Moderate [email or web address] Information not available 10/29/2019 How Much Tobacco Do You Chew? None [email or web address] Information not available 10/29/2019 In The 14 [...] Or Recreational Drugs Have You Used? Denies [email or web address] Information not available 10/29/2019 Education 2 Year College [email or web address] Information not available 06/09/2022 Have There Been Any Changes To Your Family Or Social Situation? No [email or web address] Information no t available 06/09/2022 Are There Any Guns Present In Your Home? No [email or web address] Information not available 06/09/2022 Alcohol Use 1-2 Per Week [email or web address] Information not available 06/03/2013 Year Quit Tobacco Use 2019 [email or web address] Information not available 10/29/2019 Marital Status [email or web address] Informatio n not available 06/09/2022 Do You Have A Medical Power Of Histotechnologist? No [email or web address] Information not available 06/09/2022 What Was The Date Of Your Most Recent Tobacco Screening? 12/31/2024 Information not available 12/31/2024 What Is Your Relationship Status? Information not available 04/01/2021 Do You Use Your Seat Belt Or Car Seat Routinely? Yes [email or web address] Information not available 06/09/2022 Are You Sexually Active? Yes [email or web address] Information not available 10/29/2019 Do You Have Smoke And Carbon Monoxide Detectors In Your Home? Yes [email or web address] Information not available 06/09/2022 At What Age Did You Start Smoking Tobacco? 24 [email or web address] Information not available 10/29/2019 Are You Passively [...] Many Years Have You Smoked Tobacco? 20 [email or web address] Information not available 10/29/2019 Sex: Female Functional Status Question Answer Note LastModified by Organizat ion Details LastModified Time Do you use any illicit or recreational drugs? No [email or web address] Information not available 06/09/2022 Do you or have you ever used any other forms of tobacco or nicotine? No [email or web address] Information not available 06/09/2022 What is your level of alcohol consumption? None [email or web address] Information not available 10/29/2019 Do you or have you ever used smokeless tobacco? Never used smokeless tobacco [email or web address] Information not available 10/29/2019 Are you currently employed? 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 Never used electronic cigarettes [email or web address] Information not available 10/29/2019 What is your [...] 2024 08:11:27 Father Malignant neoplasm of skin [email or web address] Not available 10/28 13:51:40 Medical History Condition [...] high-dose, trivalent, PF 3 completed Chloe Wolf [facility], [facility] 07/28/2022 15:26:27 Influenza, high-dose, trivalent, PF 3 completed Meryl Grewal [facility], [facility] 10/29/2019 14:03:31 Influenza, split virus, quadrivalent, preservative 0 completed Chloe Wolf [facility], [facility] 07/28/2022 15:26:26 Influenza, MDCK, quadrivalent, PF 0 completed Shahnaz Moran [facility] 10/29/2019 15:13:19 Past Encounters Encounter ID Performer Location Encounter Start Date Encounter Closed Date Diagnosis/Indication Diagnosis SNOMED-CT Code Diagnosis ICD10 Code Diagnosis IMO Codes Diagnosis Note [id number] [facility] [address] [place] [address] 12/21/2024 08:11:26 12/21/2024 19:17:18 Moderate major depression 550104 F32.1 chronic and improved Chronic diarrhea 7219489 09 K52.9 Chronic/pe rsistent secondary to her malabsorpt ion Spasm of back muscles 20 7456559 M62.830 Chronic/in termittent and controlled with cyclobenza esa in the past Candidiasis of vagina 72 897613 B37.31 acute but recurrent Chronic insomnia 3587792 04 F51.04 chronic/St able with no changes Allergy to food 49598716 1 Z91.018 Chronic/st able with refills given Rosacea 646242320 L71.9 Nausea 716829760 R11.0 Chronic/wo rsening Insomnia 024455832 G47.0 0 Chronic/st able and doing well with trazodone, refill given. Follow-up in the next couple of months as planned Body mass index 25-29 - overweight 168743759 E66.3 940451 Chronic with the addition of naltrexone to the bupropion Chronic pa in of left upper limb 4598734013 7193157 M25.512 G89.29 046863 Chronic and worsening with x-rays ordered and follow-up in 1 to 2 weeks Health Concerns Section Related Observation LastModified by Organization Detai ls LastModified Time None Recorded Concern Status LastModified by Organization Details LastModified Time None Recorded Payers Encounter Date Sequence Insurance Name Policy Number Policy Chawla Covered Member ID Chawla Member ID Guarantor Name 12/21/2024 1 [facility] [id number] Hannah Arrieta [id number] Hannah Arrieta 12/21/2024 2 [employer] [id number] Hannah Arrieta [id number] Hannah Arrieta Notes Date Note Type Note Provider Name and Address Organization Details Recorded Time 12/21/2024 text/html This 49-year-old female presents in [...] consent to telehealth visit. LOGAN DEL ANGEL [address] [facility] [address], [place], [address], [facility] - [facility], [facility] 12/21/2024 19:17:11 OBGyn Episode No OBEpisode recorded.
--- OUTSIDE RECORDS SUMMARY | 2025-02-02 14:17 | XMS_ITS | Data Portability ---
Author Organization [address], [id number] Address [address], [address] [place] [address] Care Team Providers Care Crisis Intervention Counselor Name Role Phone MYA, GENESIS Primary Care Provider [phone] Assessment No assessment recorded. Plan of Treatment Reminders Order Date Submit Date Provider Last Modified By Organization Details Last Modified Time Details Appointments None recorded. Lab None recorded. Referral None recorded. Procedures None recorded. Surgeries None recorded. Imaging MAMMO, screening, bilateral 2022 023 [id number] [facility], [address] [facility], [place], [address], 14:43:41 Medication Orders None recorded. Patient TargetsNo targets recorded. Patient Instructions Encounter Date Encounter Id Patient Instructions Last Modified By Organization Details Last Modified Time 06/24/2022 [id number] breast self-exam : care instructions [email or web address] Not available 06/24/2022 14:41:10 Reason for Referral None Reported. Results Created Date Observation Date Name Description Value Unit Range Abnormal Flag Note LastModifiedBy Organization Detail LastModifiedTime Result Notes None recorded. Procedures Surgical History Date Name Laterality Status Provider Name and Address Organization Details Recorded Time 02/07/19 18 breast augmentation completed Katja Chen MA [address] 06/24/2022 14:09:15 02/07/19 08 section completed Katja Chen MA [address] 06/24/2022 14:08:42 02/07/19 08 ligation of fallopian tube completed Katja Chen MA [address] 06/24/2022 14:08:52 02/07/19 06 section completed Arnaldoherlinda Chen, RODRÍGUEZ [address] 06/24/2022 14:08:39 02/07/19 02 laparoscopic excision of cyst of left ovary completed Katja Chen MA [address] 06/24/2022 14:10:00 02/07/18 95 breast augmentation completed Katja Chen MA [address] 06/24/2022 14:09:09 02/07/18 95 Knee arthroscopy/surg kilo completed Katja Chen MA [address] 06/24/2022 14:10:09 02/07/18 77 umbilical hernioplasty completed Katja Chen MA [address] 06/24/2022 14:09:40 Imaging Results None recorded. Procedure Notes None recorded. Medical Equipment None Reported. Allergies Allergen ID Allergen Name Allergen Category Reaction Reaction Severity Criticality Documentation Date Start Date Code Code System Note Provider Name and Address Organization Details Recorded Time 075366 latex environme nt,medica tion Not available Not available Not available 06/24/2022 82231 91 RxNorm RODRÍGUEZ [place], [address] 14:07:47 Medications Name Sig Start Date Stop Date Status Note LastModified by Organization Details LastModified Time polyethylen e glycol 3350 17 gram oral powder packet 06/24 completed Not Available Not Available Not Available fluconazole 150 mg tablet 06/24 completed Not Available Not Available Not Available ciprofloxac in 500 mg tablet 06/24 completed Not Available Not Available Not Available trazodone 150 mg tablet active Not Available Not Available Not Available levofloxaci n 500 mg tablet 06/24 completed Not Available Not Available Not Available clindamycin 1 % lotion APPLY TO AFFECTED AREAS OF THE BODY 1-2 TIMES DAILY NEEDED. 06/24 completed Not Available Not Available Not Available nitrofurant oin monohydrate /macrocryst als 100 mg capsule 06/24 completed Not Available Not Available Not Available Vitals Date Recorded Body weight Body mass index (BMI) Body height Systolic And Diastolic Provider Name and Address Organization Details Last Updated DateTime 06/24/2022 29121.85 g 25.2 kg/m2 167.64 cm 124/80 mm[Hg] Katja Chen MA [place] - [facility] [place] 06/24/2022 14:18:45 Social History Question Answer Notes LastModified by Organizat ion Details LastModified Time Tobacco Smoking Status Current Every Day Smoker Katja Chen MA null, [facility] [place] 06/24/2022 14:02:13 What Type Of Diet Are You Following? REGULAR [email or web address] Information not available 06/24/2022 How Many Children Do You Have? 2 [email or web address] Information not available 06/24/2022 What Is Your Relationship Status? Information not available 06/24/2022 At What Age Did You Start Smoking Tobacco? 27 Information not available 06/24/2022 How Much Tobacco Do You Smoke? 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 Occasional Information not available 06/24/2022 Mental Status None recorded. Family History Relationship Description Onset Age of this Age Resolved Age Notes LastModified by Organization Details LastModified Time Father Diabetes mellitus [email or web address] Not available 2022 14:11:27 Father Heart disease [email or web address] Not available 2022 14:11:35 Mother History of hypertension [email or web address] Not available 14:11:44 Mother Migraine [email or web address] Not available 06/24/2022 14:11:54 Medical History Condition Response UTI Y Anxiety/Depression Y Anemia Y Arthritis Y GERD/Reflux Y Immunizations Y Fibromyalgia Y PCOS Y Kidney or Bladder Problems Y Allergies Y Gynecological History Statement/Question Response Date of Last Pap Smear 05/08/2022 Total lifetime number of sexual partners ? 3 Flow Light Date of LMP 06/07/2022 Duration of Flow (days) 2 Age at Menarche 14 Current Control Method Tubal Ligat ion Cramps Y Age at First Child 31 History of Abnormal Pap Smear N Frequency of Cycle (Q days) 28 Menses Monthly Y Obstetrics History GPAL:G 2 P 2 0 0 2 Type Value Full Term 2 Living 2 Total 2 Past Encounters Encounter ID Performer Location Encounter Start Date Encounter Closed Date Diagnosis/Indication Diagnosis SNOMED-CT Code Diagnosis ICD10 Code Diagnosis IMO Codes Diagnosis Note [id number] Gerry Amador MD [id number] [facility] [place] [address], [address] [place] [address] 06/24/2022 13:33:13 06/24/2022 14:38:05 Screening mammography 15725328 Z12.31 Hymenal tag 293552101 N8 9.8 Patient reassured normal. Mucous ret ention cyst of cervix uteri 231186173 N88.8 Patient reassured normal. Gynecologi c examination 37038742 Z01.411 Z01.419 Request made for pap results Health Concerns Section Related Observation LastModified by Organization Detai ls LastModified Time None Recorded Concern Status LastModified by Organization Details LastModified Time None Recorded Advance Directives Directive None Recorded Payers Insurance Date Sequence Insurance Name Policy Number Policy Chawla Covered Member ID Chawla Member ID Guarantor Name 06/24/2022 1 [employer] Hannah Arrieta [id number] Hannah Arrieta 06/30/2022 1 [place] [id number] Hannah Arrieta [id number] Hannah Arrieta Notes Date Note Type Note Provider Name and Address Organization Details Recorded Time 06/24/2022 text/html 47 yo menses irregular every 2 to 7 weeks but light for 2 days as she has hx of endometrial ablation in 2018. Patient presents for evaluation of a vaginal polyp or cyst. She reports no dyspareunia. Gerry Amador MD [address] [facility], [place], [address], [place] - [facility] [place] 06/24/2022 14:41:17 OBGyn Episode Ob Episode Information Episode Created Date Number of Fetuses Patient Bloodtype Patient rh Status Prepregnancy Weight lbs Domestic Partner Domestic Partner Phone Father Name Anodiser Status 06/25/19 23 1 CLOSED Fetus Data First Name Last Name Admitted to NICU Weight (g) Sex Living Outcome Pediatric Complications Fetus ID Race Codes Race Delivery Type Full Term [id number] Brown Calculation Initial Brown Date Initial Exam Date Initial Exam Provider Initial Ultrasound Date Last Menstrual Period Date Ultra Sound Weeks Gestation 0 Eighteen To Twenty Week Brown Update Ultra Sound Date Fundal Height At Umbil Quickening Date Ultra Sound Latest Weeks Gestation Final Brown Confirmed By Final Brown Confirmed Date Final Brown Date Ultra Sound Latest Days Gestation 0 0 Menstrual History Last Menstrual Date Menses Monthly On Bcp Conception Prior Menses Frequency Hcg Plus Date Menarche Onset Age Delivery Information Delivery Date Delivery Type Labor Anesthesia Weeks Gestation Incision Type Labor Labor Length Hrs Delivered By Post Complications Tubal Sterilization Discharge Date Comments 8 Discharge Information Feeding Method Contraceptive Method Maternal HG B and HCT Levels Ob Episode Information Episode Created Date Number of Fetuses Patient Bloodtype Patient rh Status Prepregnancy Weight lbs Domestic Partner Domestic Partner Phone Father Name Anodiser Status 06/25/19 23 1 CLOSED Fetus Data First Name Last Name Admitted to NICU Weight (g) Sex Living Outcome Pediatric Complications Fetus ID Race Codes Race Delivery Type Full Term [id number] Brown Calculation Initial Brown Date Initial Exam Date Initial Exam Provider Initial Ultrasound Date Last Menstrual Period Date Ultra Sound Weeks Gestation 0 Eighteen To Twenty Week Brown Update Ultra Sound Date Fundal Height At Umbil Quickening Date Ultra Sound Latest Weeks Gestation Final Brown Confirmed By Final Brown Confirmed Date Final Brown Date Ultra Sound Latest Days Gestation 0 0 Menstrual History Last Menstrual Date Menses Monthly On Bcp Conception Prior Menses Frequency Hcg Plus Date Menarche Onset Age Delivery Information Delivery Date Delivery Type Labor Anesthesia Weeks Gestation Incision Type Labor Labor Length Hrs Delivered By Post Complications Tubal Sterilization Discharge Date Comments 6 Discharge Information Feeding Method Contraceptive Method Maternal HG B and HCT Levels
[2025-02-02] MEDS: IOPAMIDOL-370 (76%);100ML BOTTLE 75 ML IV (14:29)
[2025-02-02] MEDS: SODIUM CHLORIDE 0.9% 10ML SYR (RAD ONLY) 10 ML IV (14:30)
[2025-02-02] MEDS: 0.9 % SODIUM CHLORIDE 1000ML 1,000 ML 999 ML IV (14:48)
[2025-02-02] MEDS: PROCHLORPERAZINE 10MG/2ML VIAL 5 MG IV (14:49)
[2025-02-02] MEDS: KETOROLAC 30MG/ML VIAL 30 MG IV (14:50)
--- NOTE | 2025-02-02 15:08 | PC.NURSE ---
Upon entering the room to discharge another patient, this patient began to yell at this nurse. States that she has enough going on that she doesn't need to be in the same room as someone with the Flu. 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 Requesting a room to be put in. Educated patient that there are no beds available. States she would be fine in a hallway. Patient educated on the fact that the patient with Flu has been discharge.
[2025-02-02 15:12] LABS: Coronavirus 19, PCR Not Detected (NotDetected); Influenza A, PCR Not Detected (NotDetected); Influenza B, PCR Not Detected (NotDetected)
[2025-02-02 15:17] LABS: Hematocrit 40.8 % (37.0-47.0); Hemoglobin 13.7 g/dL (12.2-16.2); Immature Granulocytes % 0.9 %; Mean Corpuscular HGB Conc 33.6 g/dL (31.8-35.4); Mean Corpuscular Hemoglobin 29.5 pg (27.0-31.2); Mean Corpuscular Volume 87.9 fl (81-99); Nucleated Red Blood Cells % 0 %; Platelet Count 353 K/mm3 (142-424); Red Blood Count 4.64 M/mm3 (4.20-5.40); Red Cell Distribution Width-SD 42.0 fL; White Blood Count 11.6 K/mm3 (4.8-10.8)
[2025-02-02 15:20] LABS: Albumin Level 4.1 g/dl (3.5-5.0); Chloride 102 mmol/L (98-107); Sodium 133 mmol/L (136-145)
[2025-02-02 15:21] LABS: Potassium 4.1 mmoL/L (3.5-5.1)
[2025-02-02 15:23] LABS: Alanine Aminotransferase 27 U/L (12-78); Albumin/Globulin Ratio 1.4 (1.1-1.8); Alkaline Phosphatase 74 U/L (38-126); Anion Gap 9.1 mEq/L (5-15); Aspartate Amino Transferase 22 U/L (14-36); Bilirubin,Total 0.2 mg/dl (0.2-1.3); Blood Urea Nitrogen 18 mg/dl (7-17); Calcium 9.2 mg/dl (8.4-10.2); Carbon Dioxide 26 mmol/L (22.0-30.0); Creatinine Clearance Estimated 143 mL/min (50-200); Creatinine,Serum 0.60 mg/dl (0.52-1.04); Estimated Glomerular Filt Rate 107 ml/min (>60); GFR (African American) 129 ML/MIN (>60); Globulin 2.9 g/dL (1.3-3.2); Glucose 98 mg/dl (74-100); Lipase 64 U/L (23-300); Total Protein,Serum 7.0 g/dl (6.3-8.2)
[2025-02-02 15:24] LABS: Magnesium 2.1 mg/dl (1.6-2.3)
[2025-02-02 15:26] VITALS: BP 136/78; PULSE 87; RESP 16; TEMP 37; O2SAT 99
[2025-02-02 15:36] LABS: Troponin I < 0.01 ng/ml (0.00-0.034)
== END 2025-02-02 15:27 | disposition left against medical advice (07) ==
PROVIDERS: Nurse Practitioner; Emergency Provider Emergency Medicine
DX: R10.32 Left lower quadrant pain (principal); R11.2 Nausea with vomiting, unspecified
CPT/HCPCS: 71045; 74177; 80053; 83690; 83735; 84484; 85025; 87636; 96361; 96374; 96375; 99285; J0780; J1885; J7030; Q9967